=== PATIENT | female | born 1960 | race Caucasian/White ===

== ENCOUNTER 2025-01-30 16:38 | Emergency (ER) | payer MEDICARE, SELFPAY ==
[2025-01-30] VITALS (33 sets, daily range): BP systolic 95–131; BP diastolic 38–93; PULSE 68–82; RESP 13–29; TEMP 36.4; O2SAT 82–100
--- NOTE | ~2025-01-30 | CT_ITS ---
EXAMINATION: CTA chest PE protocol DATE: 01/30/2025 18:33 CDT INDICATION: Shortness of breath. Recent surgery. Elevated d-dimer. TECHNIQUE: Computed tomographic angiography (CTA) of the chest was performed with 100 mL Omnipaque-350 intravenous contrast. The dose-length product was 652.13 mGy-cm. Maximum intensity projection 3D-reconstructions of the aorta and other arteries were constructed by the technologist on a separate workstation. COMPARISON: Chest dated 01/30/2025. FINDINGS: Study is technically adequate without evidence for pulmonary embolism. No significant pleural or pericardial effusion. No thoracic lymphadenopathy. There is thickening of the esophagus, consistent with esophagitis. There is left lower lobe atelectasis. No focal pneumonia, edema or effusion. No pneumothorax. No endobronchial lesions. No acute osseous abnormality. Mild thoracic spondylosis. IMPRESSION: 1. Left lower lobe atelectasis. Reviewed, dictated and finalized at location O.
--- NOTE | ~2025-01-30 | XR_ITS ---
XR chest 2V 01/30/2025 17:12 Indication: Chest pain and shortness of breath Procedure: 2 view chest Comparison: No prior studies for comparison. Findings: There is subsegmental left lower lobe atelectasis. Heart size normal. No focal pneumonia, edema, significant effusion or pneumothorax. There are surgical changes at the cervicothoracic junction consistent with fusion. Impression: 1: Left lower lobe atelectasis. Reviewed, dictated and finalized at location O. Impression: 1: Left lower lobe atelectasis.
--- NOTE | 2025-01-30 16:44 | ECG_ITS ---
Test Date: 2025-01-30 16:43:41 Measurements Intervals [place] Rate: 76 P: 38 MS: 145 QRS: -3 QRSD: 84 T: 46 QT: 359 QTc: 405 Interpretive Statements SINUS RHYTHM LEFT AXIS DEVIATION No previous ECG available for comparison Electronically Signed On 01-31-2025 12:14:44 CDT by Negrito Pineda M.D.
[2025-01-30 17:03] LABS: Hematocrit 28.6 % (37.0-47.0); Hemoglobin 8.9 g/dL (12.0-15.0); Mean Corpuscular HGB Conc 31.1 g/dl (32-36); Mean Corpuscular Hemoglobin 28.9 pg (26-34); Mean Corpuscular Volume 92.9 fl (80-100); Platelet Count Result 388 k/mm3 (150-375); Red Blood Count 3.08 M/mm3 (4.2-5.4); White Blood Count 13.0 K/mm3 (4.5-10.0)
[2025-01-30 17:13] LABS: INR 1.0; Prothrombin Time 13.3 Seconds (11.1-14.7)
[2025-01-30 17:14] LABS: Partial Thromboplastin Time 34.7 Seconds (22.3-36.8)
[2025-01-30 17:17] LABS: Band Neutrophils Percent 2 % (0-6); Eosinophils Absolute Manual 0.39 K/mm3 (0.02-0.50); Eosinophils Percent Manual 3 % (0-4); Lymphocytes Absolute Manual 0.91 K/mm3 (1.1-4.5); Lymphocytes Percent Manual 7 % (18-44); Monocytes Absolute Manual 0.91 K/mm3 (0.1-0.90); Monocytes Percent Manual 7 % (3-9); Neutrophils Absolute Manual 10.27 K/mm3 (1.3-6.7); Neutrophils Percent Manual 77 % (46-73); Total Cells Counted 100
[2025-01-30 17:18] LABS: Metamyelocytes Percent 2 %; Myelocytes Percent 2 %; Schistocytes None Seen
[2025-01-30 17:19] LABS: Alanine Aminotransferase 18 U/L (6-35); Albumin Level 3.9 g/dL (3.5-5.1); Alkaline Phosphatase 111 U/L (38-126); Anion Gap 9 mmol/L (4-12); Aspartate Amino Transferase 24 U/L (14-36); Bilirubin,Total 0.2 mg/dL (0.2-1.3); Blood Urea Nitrogen 27 mg/dL (7-17); Calcium 9.2 mg/dL (8.4-10.2); Carbon Dioxide 27 mmol/L (22-30); Chloride 101 mmol/L (98-107); Estimated CRCL calculation 42 ml/min; Estimated Glomerular Filt Rate 49; Glucose 100 mg/dL (65-110); Lipase 38 U/L (23-300); Potassium 4.0 mmol/L (3.4-5.0); Sodium 137 mmol/L (137-145); Total Protein 7.1 g/dL (6.3-8.2)
--- OUTSIDE RECORDS SUMMARY | 2025-01-30 17:19 | XMS_ITS | Encounter Summary ---
Author Organization [facility] Address [address] [place] [address] Care Team Providers Care Cone Sewer Name Role Phone Minerva Trejo MD Primary Care Provider [phone] Encounter Details Date Type Department Care Team (Late st Contact Info) Description 01/22/[address] [place] [address] Sc[facility], [facility] Social History Tobacco Use Types Packs/Day Years Used Date Smoking Tobacco: Never Assessed Comments Unknown Sex and Gender Information Value Date Recorded Sex Assigned at Not on file Legal Sex Female 4:13 PM CDT Gender Identity Not on file Sexual Orientation Not on file documented as of this encounter Plan of Treatment Not on file documented as of this encounter Visit Diagnoses Not on filedocumented in this encounter Care Teams Cone Sewer Relationship Specialty Start Date End Date Minerva Trejo MD [address] [place] [address] PCP - General 11/15/14 documented as of this encounter
--- OUTSIDE RECORDS SUMMARY | 2025-01-30 17:19 | XMS_ITS | Encounter Summary ---
Author Organization [facility] Health Address [address] [place] [address] Care Team Providers Care Set Illustrator Name Role Phone Renay Trejo MD Primary Care Provider [phone] Cecilia Hall RN Unavailable Encounter Details Date Type Department Care Team (Late st Contact Info) Description 01/29/2025 Orders Only [facility] - [facility] [address] [facility] [place] [address] Nish Palmer MD [address] [place] [address] Cervical spondylosis with myelopathy Social History Tobacco Use Types Packs/Day Years Used Date Smoking Tobacco: Former Cigarettes Q uit: 11/18/2024 Smokeless Tobacco: Never Alcohol Use Standard Drinks/Week Comments No 0 (1 standard drink = 0.6 oz pur e alcohol) AUDIT-C Answer Date Recorded Q1: How often do you have a drink containing alcohol? Never 01/20/2025 Q2: How many drinks containi ng alcohol do you have on a typical day when you are drinking? Patient does not drink Q3: How often do you have si x or more drinks on one occasion? Never 01/20/2025 Overall Financial Resource Strain (CARDIA) Answe r Date Recorded How hard is it for you to pa y for the very basics like food, housing, medical care, and heating? Not hard at all 01/20/2025 PHQ-2 Answer Date Recorded Patient Health Questionnaire-2 Score 2 12/26/2024 [facility] - Occupational Stress Questionnaire Answer Date Recorded Do you feel stress - tense, restless, nervous, or anxious, or unable to sleep at night because your mind is troubled all the time - these days? Not at all 01/20/2025 Hunger Vital Sign Answer Date Recorded Within the past 12 months, y ou worried that your food would run out before you got the money to buy more. Never true 01/21/20 Within the past 12 months, t he food you bought just didn't last and you didn't have money to get more. Never true 01/20/2025 PRAPARE - Transportation Answer Date Re corded In the past 12 months, has l ack of transportation kept you from medical appointments or from getting medications? No 12/28 In the past 12 months, has l ack of transportation kept you from meetings, work, or from getting things needed for daily living? No 01/20/2025 Housing Stability Vital Sign Answer Rodney e Recorded In the last 12 months, was t here a time when you were not able to pay the mortgage or rent on time? No 01/20/2025 In the past 12 months, how m any times have you moved where you were living? 0 01/20/2025 At any time in the past 12 m onths, were you homeless or living in a prison (including now)? No 01/20/2025 Comments No Sex and Gender Information Value Date Recorded Sex Assigned at Not on file Legal Sex Female 6:29 AM RELIGIOUS EDUCATOR Gender Identity Not on file Sexual Orientation Not on file documented as of this encounter Functional Status * Is person deaf or have serious hearing difficulty? Answer Date of Assessment Author No 01/20/2025 6:40 PM Neelima Levine yes, RN * Is person blind or have serious difficulty seeing? Answer Date of Assessment Author No 01/20/2025 6:40 PM Neelima Levine yes, RN * Does person have serious difficulty walking/climbing stairs? Answer Date of Assessment Author No 01/20/2025 6:40 PM Neelima Levine yes, RN * Does person have difficulty dressing/bathing? Answer Date of Assessment Author No 01/20/2025 6:40 PM CDT Neelima Greene yes, RN * Does person have difficulty doing errands alone? Answer Date of Assessment Author No 01/20/2025 6:40 PM ALTAGRACIAT Neelima Greene yes, RN documented as of this encounter Mental Status * Does person have difficulty concentrating/remembering/making decisions? Answer Entry Date Author No 01/20/2025 6:40 PM ALTAGRACIAT Neelima Greene yes, RN documented in this encounter Plan of Treatment Upcoming Encounters Date Type Department Care Team (Late st Contact Info) Description 02/07/2025 11:00 AM CDT Office Visit [facility] [address] [place] [address] Minerva Krishnamurthy, [facility] [address] [place] [address].[place] [address] 02/20/2025 9:45 AM CDT Office Visit [facility] - Orthopedic Surgery [address] [place] [address] Nish Palmer MD [address] [place] [address] documented as of this encounter Visit Diagnoses Diagnosis Cervical spondylosis with myelopathy documented in this encounter Care Teams Set Illustrator Relationship Specialty Start Date End Date Renay Trejo MD [address] [place] [address] PCP - General Internal Medicine 10/03/14 Cecilia Hall, RADHA Mold Tooler 09/03/15 documented as of this encounter
--- OUTSIDE RECORDS SUMMARY | 2025-01-30 17:19 | XMS_ITS | Encounter Summary ---
Author Organization [facility] Health Address [address] [place] [address] Care Team Providers Care Neon Glass Blower Name Role Phone Renay Trejo MD Primary Care Provider [phone] Cecilia Hall RN Unavailable Encounter Details Date Type Department Care Team (Late st Contact Info) Description 01/14/2019 Telephone [facility] Orthopedic Surgery [address] [place] [address] Omid Amin MD [id number] [place] [address] Social History Tobacco Use Types Packs/Day Years Used Date Smoking Tobacco: Former Cigarettes Q uit: 11/10/2018 Smokeless Tobacco: Never Comments:3-5 cig/day Alcohol Use Standard Drinks/Week Comments No 0 (1 standard drink = 0.6 oz pur e alcohol) Comments No Sex and Gender Information Value Date Recorded Sex Assigned at Not on file Legal Sex Female 6:29 AM BOBBIN COLLECTOR Gender Identity Not on file Sexual Orientation Not on file documented as of this encounter Functional Status * Is person deaf or have serious hearing difficulty? Answer Date of Assessment Author No 09/02/2015 8:31 AM Alfredo Contreras RN * Is person blind or have serious difficulty seeing? Answer Date of Assessment Author No 09/02/2015 8:31 AM Alfredo Contreras RN * Does person have serious difficulty walking/climbing stairs? Answer Date of Assessment Author No 09/02/2015 8:31 AM Alfredo Contreras RN * Does person have difficulty dressing/bathing? Answer Date of Assessment Author No 09/02/2015 8:31 AM Alfredo Contreras RN * Does person have difficulty doing errands alone? Answer Date of Assessment Author No 09/02/2015 8:31 AM Alfredo Contreras RN documented as of this encounter Mental Status * Does person have difficulty concentrating/remembering/making decisions? Answer Entry Date Author No 09/02/2015 8:31 AM Alfredo Contreras RN documented in this encounter Plan of Treatment Upcoming Encounters Date Type Department Care Team (Late st Contact Info) Description 02/07/2025 11:00 AM CDT Office Visit [facility] [address] [place] [address] Minerva Krishnamurthy, GRINDING AND POLISHING LABORER-BI APPLICATION DEVELOPER [address] [place] [address] 02/20/2025 9:45 AM CDT Office Visit [facility] - Orthopedic Surgery [address] [place] [address] Nish Palmer MD [address] [place] [address] documented as of this encounter Visit Diagnoses Not on filedocumented in this encounter Care Teams Neon Glass Blower Relationship Specialty Start Date End Date Renay Trejo MD [address] [place] [address] PCP - General Internal Medicine 10/03/14 Cecilia Hall, RADHA Sql Server Bi Developer 09/03/15 documented as of this encounter
--- OUTSIDE RECORDS SUMMARY | 2025-01-30 17:19 | XMS_ITS | Encounter Summary ---
Author Organization [facility] Healthcare Address [address] [place] [address] Care Team Providers Care Clerk Rating Name Role Phone Minerva Trejo MD Primary Care Provider + [phone] Robby Borges DO Unavailable Heriberto Carreon DO Unavailable [phone] Yesenia Duncan DO Unavailable [phone] Omid Amin MD Unavailable John Escoto DO Unavailable + Nish Palmer MD Unavailable Jose Harding MD Unavailable Encounter Details Date Type Department Care Team (Late st Contact Info) Description 01/30/2025 Telephone [facility] Medical Group [facility] [address] [place] [address] Minerva Trejo MD [address] [place] [address] Social History Tobacco Use Types Packs/Day Years Used Date Smoking Tobacco: Some Days Cigarettes 0.5 40 Smokeless Tobacco: Never Alcohol Use Standard Drinks/Week Comments No 0 (1 standard drink = 0.6 oz pur e alcohol) PHQ-2 Answer Date Recorded PHQ-2 Total Score (If total score is 3 or more points, staff should administer the PHQ-9) 0 05/01/2024 Comments No Sex and Gender Information Value Date Recorded Sex Assigned at Not on file Legal Sex Female 6:03 PM LIFE SKILLS TRAINER Gender Identity Not on file Sexual Orientation Not on file Occupation Industry Job Start Date Job End Date disabled Not on file Not on file Not on file documented as of this encounter Miscellaneous Notes * Telephone Encounter - Levon Johnson RN - 01/30/2025 1:52 PM CDT Spoke to pt re: below Pt post op spinal fusion surgery on 01-20-25 @ [facility] Pt c/o new onset of SOB worsens w/exertion, anselmo low leg, ankle et feet et anselmo hand swelling-states my calves are very tight et it is a little red on my left leg down by my feet, my legs et feet are so swollen I can't hardly walk et I am having a hard time w/my breathing like I need some oxygen et I have a loose cough Instructed pt to go to nearest ER for eval of above Pt states she has no transport-offered to call for ambulance transfer Pt declines ambulance transfer et states she plans to call the surgeons office for his recommend prior to going to ER Instructed pt to call for Ambulance transfer [facility] if c/o worsen prior to recommend from surgeon's office Pt voices understand et states she will call back if needs assist to call for ambulance transfer ifdoes not get response from surgeon's office Pt has no further questions @ this time [id number] above * Telephone Encounter - Scarlett Willingham - 01/30/2025 1:21 PM CDT Pt just had a cervical spine fusion done on Monday01/27/25 at [facility] . Today pt has symptoms of Legs are swollen Hands are swollen Congestion in chest Cough Productive cough No fever Headache Neck pain near incision Please advise [phone] patient documented in this encounter Plan of Treatment Not on file documented as of this encounter Visit Diagnoses Not on filedocumented in this encounter Care Teams Clerk Rating Relationship Specialty Start Date End Date Minerva Trejo MD PCP - General 08/26/16 Robby Borges, DO [address] [place] [address] Orthopedic Surgery 02/14/17 Heriberto Carreon DO [address] [place] [address] Psychiatry 02/14/17 Yesenia Duncan DO [address] [place] [address] Referring Physician Ophthalmology 08/21/18 Omid Amin MD [address] [place] [address] Referring Physician Orthopedic Surgery 08/11/20 John Escoto DO [address] [facility] [address] [place] [address] Orthopedic Surgery 07/26/24 Nish Palmer MD [address] [place] [address] Orthopedic Surgery 11/04/24 Jose Harding MD [address] [place] [id number] Anesthesiology 11/04/24 documented as of this encounter
--- OUTSIDE RECORDS SUMMARY | 2025-01-30 17:19 | XMS_ITS | Encounter Summary ---
Author Organization [facility] Address [address] [place] [address] Care Team Providers Care Nuclear Equipment Sales Engineer Name Role Phone Minerva Trejo MD Primary Care Provider [phone] Encounter Details Date Type Department Care Team (Late st Contact Info) Description 04/01/2017 [place] [address] , Generic Conversion, Social History Tobacco Use Types Packs/Day Years [...] on filedocumented in this encounter Care Teams Nuclear Equipment Sales Engineer Relationship Specialty Start Date End Date Minerva Trejo MD [address] [place] [address] PCP - General 11/15/14 documented as of this encounter
--- OUTSIDE RECORDS SUMMARY | 2025-01-30 17:19 | XMS_ITS | Clinical Summary ---
Author Organization [facility] Address [address] [place] [address] Care Team Providers Care Tin Stacker Name Role Phone Renay Trejo MD Primary Care Provider [phone] Cecilia Hall RN Unavailable Source Comments [facility],non-owned Affiliates and Associated Physician Practices is amultiple site organization consisting of ambulatory clinics and hospital sitesin [place], [place], [place] and [place]. This disclosure is being madepursuant to the Care Everywhere program and may not contain all information available regarding this patient. Last updated 18.[facility] Allergies Active Allergy Reactions Criticality Noted Date Comments Aspirin GI Discomfort Low Buprenorphine Rash Medium 09/02/2015 Reaction: Rash, Egg Phospholipids Anaphylaxis High 10/03/2014 Measles, pneumonia, flu shot Albumin Unknown Low 09/01/2015 Poultry Meal 09/01/2015 Propofol Anaphylaxis High 10/03/2014 Propoxyphene GI Discomfort Low Medications * This document contains information received from the source organization and may not represent a complete record from that organization. * Be aware that medications may not be up to date on this document. Alwaysverify current medications with the patient. lamoTRIgine (LAMICTAL) 150 MG tablet Take 1 (one) tablet by mouth 2 times daily Active albuterol HFA (PROVENTIL;VENT BLAYNE;PROAIR) 108 (90 BASE) MCG/ACT inhaler Inhale 2 (two) puffs by mouth every 6 hours as needed Active budesonide-form oterol (SYMBICORT) 80-4.5 MCG/ACT inhaler Inhale 2 (two) puffs by mouth 2 times daily Active pravastatin (PRAVACHOL) 40 MG tablet Take 1 (one) tablet by mouth at bedtime Active ALPRAZolam (XANAX) 1 MG tablet Take 1 Tab by mouth 3 times daily as needed for Anxiety 5 Tab 0 09/07/19 16 Active latanoprost (Xalatan) 0.005 % ophthalmic solution Instill 1 (one) drop into both eyes at bedtime 03/25/20 24 Active Cholecalciferol 1.25 MG (93210 UT) Take 50,000 Units by mouth every 14 days 04/30/20 24 Active clobetasol (Temovate) 0.05 % solution APPLY TOPICALLY TO THE AFFECTED AREAS OF THE SCALP UNTIL CLEAR 02/13/20 24 Active gabapentin (Neurontin) 300 MG capsule Take 1 (one) capsule by mouth 05/01/20 24 Active hydrOXYzine HCl (Atarax) 25 MG tablet 08/18/19 25 Active KETOCONAZOLE, TOPICAL, 1 % Apply topically 02/29/20 23 Active valsartan-hydro CHLOROthiazide (Diovan HCT) 160-12.5 MG tablet Take 1 (one) tablet by mouth once daily Active tiZANidine (Zanaflex) 2 MG capsule Active multivitamin daily tablet Take 1 (one) tablet by mouth daily with food Active acetaminophen (Tylenol) 500 MG tablet Take 2 (two) tablets by mouth every 6 hours Maximum allowable Acetaminophen amount = 4 Grams (4000 mg) / 24 hours. 01/22/20 25 Active polyethylene glycol 3350 (Miralax) 17 g packet Take 17 (seventeen) g by mouth once daily 01/23/20 25 Active senna (Senokot Extra Strength) 17.2 MG Take 17.2 mg by mouth once daily 01/24/20 25 Active oxyCODONE, immediate release, (Roxicodone) 5 MG tabletIndicatio ns:Cervical spondylosis with myelopathy Take 1 (one) tablet by mouth every 6 hours as needed 30 tablet 01/30/20 25 Active methocarbamol (Robaxin) 500 MG tabletIndicatio ns:Cervical spondylosis with myelopathy Take 1 (one) tablet by mouth every 6 hours 60 tablet 01/30/20 25 Active acetaminophen (Tylenol) 500 MG tablet Take 1 (one) tablet by mouth 3 times daily as needed 05/01/20 24 025 Discontin ued(List Clean-Up) albuterol HFA (Proventil; Ventolin; Proair) 108 (90 Base) MCG/ACT inhaler Inhale 2 (two) puffs by mouth every 4 hours as needed 05/01/20 24 025 Discontin ued(List Clean-Up) oxyCODONE, immediate release, (Roxicodone) 5 MG tabletIndicatio ns:Cervical spondylosis with myelopathy Take 1 (one) tablet by mouth every 4 hours as needed 30 tablet 5 4:35 PM CDT 01/24/20 25 025 Discontin ued(Reord er) methocarbamol (Robaxin) 500 MG tablet Take 2 (two) tablets by mouth every 6 hours 60 tablet 5 4:35 PM CDT 01/24/20 25 025 Discontin ued(Reord er) Active Problems Problem Noted Date Diagnosed Date Cervical spondylosis with myelopathy 01/20/2025 Bipolar 1 disorder with moderate amparo Overview (07/28/2024): Diagnosed 2004 Vitamin D deficiency 05/16/2024 Open-angle glaucoma 08/21/2018 Arthritis 08/15/2017 Chronic pain disorder 08/15/2017 Overview (10/19/2018): Overview: Ankle disability with previous repair, bilateral knee repair, severe arthritis in the neck. Prediabetes 08/13/2017 Overview (07/28/2024): Diet and exercise management of the problem Anxiety 09/02/2015 Ankle arthritis 09/02/2015 Arthralgia of ankle 03/05/2014 Benign hypertension 10/12/2013 Overview (10/19/2018): Overview: Benign essential HTN Chronic rhinitis 10/12/2013 Overview (10/19/2018): Overview: Chronic rhinitis Herpes simplex type 2 infection 10/12/2013 Overview (10/19/2018): Overview: HSV-2 (herpes simplex virus 2) infection Multiple-type hyperlipidemia 10/12/2013 Overview (10/19/2018): Overview: Hyperlipemia, mixed Tobacco dependence syndrome 10/12/2013 Overview (10/19/2018): Overview: Tobacco abuse HLA B27 (HLA B27 positive) 08/30/2013 Overview (10/19/2018): Overview: HLA B27 (HLA B27 positive) Bipolar I disorder, most recent episode depresse d 06/17/2013 Overview (10/19/2018): Overview: Bipolar depression COPD with asthma 06/17/2013 Overview (10/19/2018): Overview: COPD with emphysema Resolved Problems Problem Noted Date Diagnosed Date Resolved Date Primary osteoarthritis of left knee 07/23/2015 01/23/2019 Encounters Date Type Department Care Team Description 01/29/2025 Orders Only [facility] - Orthopedics [address] [place] [address] Nish Palmer MD Cervical spondylosis with myelopathy 01/24/2025 Telephone [facility] - Orthopedic Surgery [address] [place] [phone] Nish Palmer MD Home Health 01/20/2025 7:37 AM CDT Anesthesia Event [facility] [address] [place] [phone] Alfie Spain MD [place], Briar, 01/20/2025 7:15 AM CDT - 01/20/2025 1:45 PM CDT Surgery [facility] [address] [place] [phone] Nish Palmer MD C2-T2 Posterior Spinal Fusion; C3-C7 Decompression 01/20/2025 5:49 AM CDT - 01/23/2025 2:20 PM CDT Hospital Encounter [facility] 5N ACUTE [address] [place] [address] Nish Palmer MD Surgery General Discharge Disposition: Home or Self Care 01/20/2025 Travel 01/10/2025 Telephone [facility] - Orthopedic Surgery [address] [place] [phone] Nish Palmer MD Concerns 01/02/2025 11:05 AM CDT - 01/02/2025 11:59 PM CDT Hospital Encounter [facility] LAB OP DRAW STATION [address] [place] [address] Discharge Disposition: Home or Self Care 01/02/2025 10:00 AM CDT - 01/02/2025 11:04 AM CDT Hospital Encounter [facility] PAT [address] [place] [address] Jael Palmer MD Discharge Disposition: Home or Self Care 01/02/2025 Travel 11/27/2024 11:47 AM CDT - 11/27/2024 11:59 PM CDT Hospital Encounter [facility] Health Imaging Services - CT Scan [address] [place] [address], [address] [place] [address] Nish Palmer MD Discharge Disposition: Home or Self Care 11/21/2024 Orders Only [facility] - [facility] Surgery [address] [place] [phone] Valentina Rodriguez RN Cervicalgia ; Trochanteric bursitis, left hip; Smoking history; Pre-operative clearance 11/14/2024 1:00 PM CDT [facility] [address] [place] [phone] Nish Palmer MD Cervical spondylosis with myelopathy (Primary Dx); Sacroiliitis; Trochanteric bursitis of both hips; Status post lumbar spinal fusion 11/14/2024 Travel 11/07/2024 10:58 AM CDT - 11/07/2024 11:59 PM CDT Hospital Encounter [facility] [address] [place] [address] Minerva Krishnamurthy, TECHNOLOGY DEVELOPMENT INTERN-STRATEGY LEAD Discharge Disposition: Home or Self Care 11/07/2024 Travel from Last 3 Months Immunizations Immunization Administration Dates Next Due TDAP (7yrs+) 08/09/2016 Social History Tobacco Use Types Packs/Day Years [...] Recorded Patient Health Questionnaire-2 Score 2 12/26/2024 [facility] Honor of Occupat ional Health - Occupational Stress [...] money to buy more. Never true 01/21/20 25 Within the past 12 months, t he [...] any time in the past 12 m [facility], were you homeless or living in a intermediate (including now)? No 01/20/2025 Comments No Sex and Gender Information Value Date Recorded Sex Assigned at Not on file Legal Sex Female 6:29 AM CAP SEWER Gender Identity Not on file Sexual Orientation Not on file Last Filed Vital Signs Vital Sign Reading Time Taken Comments Blood Pressure 152/65 01/23/2025 12:31 PM CDT Pulse 103 01/23/2025 12:31 PM CDT Temperature 36.8 C (98.2 F) 01/23/2025 12:31 PM CDT Respiratory Rate 18 01/23/2025 12:31 PM CDT Oxygen Saturation 95% 01/23/2025 12:31 PM CDT Inhaled Oxygen Concentration - - Weight 77.3 kg (170 lb 6.4 oz) 01/20/2025 6:10 A M CDT Height 157.5 cm (5' 2) 01/20/2025 6:10 AM CDT Body Mass Index 31.17 01/20/2025 6:10 AM CDT Plan of Treatment Upcoming Encounters Date Type Department Care Team (Late st Contact Info) Description 02/07/2025 11:00 AM CDT Office Visit [facility] Health Pain Care [address] [place] [address] Minerva Krishnamurthy, TECHNOLOGY DEVELOPMENT INTERN-STRATEGY LEAD [address] [place] [phone] 02/20/2025 9:45 AM CDT Office Visit [facility] - Orthopedic Surgery [address] [place] [address] Nish Palmer MD [address] [place] [address] Health Maintenance Due Date Last Done Comments COLON MONITORING 1958 COLONOSCOPY - COLON CA SCREENING 1958 CT COLONOGRAPHY - COLON CA SCREENING 1958 FIT - COLON CA SCREENING 1958 FLEX SIG - COLON CA SCREENING 1958 PNEUMOCOCCAL VACCINE 50+ (1 of 2 - PCV) 1977 ZOSTER VACCINE (1 of 2) 01/22/2008 Respiratory Syncytial Virus (RSV) Vaccine Pt: or over 60 yrs (1 - Risk 60-74 years 1-dose series) 2018 MEDICARE AWV CALENDAR YEAR 2024 COVID-19 VACCINE (1 - season) 2025 INFLUENZA VACCINE (#1) 2025 DTAP/TDAP/TD VACCINES (2 - Td or Tdap) 08/09/2026 08/09/2016 MAMMOGRAM 11/04/2026 11/04/2024, 01/2025, 09/04/2023, Additional history exists COLOGUARD (AGES 45-75) - COLON CA SCREENING 11/12/2026 11/13/2023 Colorectal Cancer Screening 11/12/2026 SCREENING FOR DIABETES 01/24/2028 , 01/22/2025, 2025, Additional history exists BONE DENSITY TESTING Completed 03/21/2023 HEPATITIS C SCREENING Completed 05/01/2024, 024 HEPATITIS B VACCINE Aged Out No longe r eligible based on patient's age to complete this topic HIB VACCINE Aged Out No longer eligi ble based on patient's age to complete this topic HPV VACCINE Aged Out No longer eligi ble based on patient's age to complete this topic MENINGOCOCCAL (Group B) VACCINE SHARED DECISION-MAKING Aged Out No longer eligible based on patient's age to complete this topic MENINGOCOCCAL GROUPS A/C/Y/W VACCINE Aged Out No longer eligible based on patient's age to complete this topic Medical Devices Implanted Type Area Marshmallow Machine Operator Device Identifier Shelf Expiration Date Model / Serial / Lot Atec 3.5 X 12 Screws Implanted:Qty : 5 on 01/20/2025 by Nish Palmer MD at [facility] Screw N/A: Posterior Cervical Alphatec Spine 11233-18-23 / / 99 Atec 3.5 X 14mm Screws Implanted:Qty : 3 on 01/20/2025 by Nish Palmer MD at [facility] Screw N/A: Posterior Cervical Alphatec Spine [id number] Atec 3.5 X 16mm Screws Implanted:Qty : 2 on 01/20/2025 by Nish Palmer MD at [facility] Screw N/A: Posterior Cervical [id number] Atec 5.0 X 28mm Screws Implanted:Qty : 3 on 01/20/2025 by iNsh Palmer MD at [facility] Screw N/A: Posterior Cervical Alphatec Spine [id number] Katey Screw 32mm Thd 65mm Implanted:Qty : 1 on 09/02/2015 by Robby Borges DO at [facility] Right: Ankle Nat Inc [id number] / / Washer Implanted:Qty : 1 on 09/02/2015 by Robby Borges DO at [facility] Right: Ankle Nat Inc [id number] 0 / / Cannulated Screw Full Thread 50mm Implanted:Qty : 1 on 09/02/2015 by Robby Borges DO at [facility] Right: Ankle Nat Inc [id number] 7 / / 3.5mm Screw Implanted:Qty : 1 on 09/02/2015 by Robby Borges DO at [facility] Right: Ankle Nat Inc / / 3.5mm Screw Implanted:Qty : 1 on 09/02/2015 by Robby Borges DO at [facility] Right: Ankle Nat Inc / / 3.5mm Screw Implanted:Qty : 1 on 09/02/2015 by Robby Borges DO at [facility] Right: Ankle Nat Inc / / 1/3 Tubular 3 Hole Plate Implanted:Qty : 1 on 09/02/2015 by Robby Borges DO at [facility] Right: Ankle Nat Inc [id number] / / 4.0mm Partially Threaded Screw Implanted:Qty : 1 on 09/02/2015 by Robby Borges DO at [facility] Right: Ankle Nat Inc / / Nexgen Cr-Flex Porous Femoral Size E-Lt Implanted:Qty : 1 on 01/22/2019 by Omid Amin MD at [facility] Left: Knee Nat Biomet 07/26/2028 / / [id number] Description:NexGen complete knee solution cruciate retaining cr-flex femoral component porous size e left Deacon K2 Sys Kn Uncemented Implanted:Qty : 1 on 01/22/2019 by Omid Amin MD at [facility] Left: Knee Nat Biomet K2 UNCEMENT ED / / Nexgen Trab Metal Cr Monoblock Tib Sz 4 C/D 10mm Implanted:Qty : 1 on 01/22/2019 by Omid Amin MD at [facility] Left: Knee Nat Biomet 04/27/[id number] 0 [id number] / Description:JY Nexgen complete knee solution cruciate retaining trabecular metal monoblock tibial component tibaial size 4 femoral size c-h 10mm height tantalum/uhmwpe Graft Bone Magnifuse Dbm 10x1cm - [id number] Implanted:Qty : 1 on 01/20/2025 by Nish Palmer MD at [facility] N/A: Spine Cervical Osteotech Inc 08/05/2026 [id number] / [id number] / [id number] Implanted:Qty : 2 on 01/20/2025 by Nish Palmer MD at [facility] N/A: Spine Cervical Alphatec Spine [id number] / / 99 Set Screw Implanted:Qty : 14 on 01/20/2025 by Nish Palmer MD at [facility] N/A: Spine Cervical Alphatec Spine [id number] / / 99 Graft Bone Canc 4-9.5mm 30cc Algrf Frzdr - [id number] Implanted:Qty : 1 on 01/20/2025 by Nish Palmer MD at [facility] N/A: Spine Cervical Allosource 08/12/2029 [id number] / [id number] / Explanted Type Area Marshmallow Machine Operator Device Identifier Shelf Expiration Date Model / Serial / Lot Atec 5.0 X 30mm Screw Explanted:Qty: 1 on 01/20/2025 at [facility] Screw N/A: Posterior Cervical Alphatec Spine [id number] 30 / / Procedures Procedure Name Priority Date/Time Associated Diagnosis Comments CBC W AUTO DIFFERENTIAL Routine 01/23/2025 3:11 AM CDT BASIC METABOLIC PANEL (CALCIUM TOTAL) Routine 01/23/2025 3:11 AM CDT CBC W AUTO DIFFERENTIAL Routine 01/22/2025 5:24 AM CDT BASIC METABOLIC PANEL (CALCIUM TOTAL) Routine 01/22/2025 5:24 AM CDT XR CERVICAL SPINE 2 OR 3VW Routine 2025 3:58 PM CDT Cervical spondylosis with myelopathy CBC W AUTO DIFFERENTIAL Routine 2025 3:13 AM CDT BASIC METABOLIC PANEL (CALCIUM TOTAL) Routine 2025 3:13 AM CDT FL NAHOMY SURGERY Routine 01/20/2025 12:30 PM CDT Cervical spondylosis with myelopathy ENDOTRACHEAL TUBE NOTE Routine 01/20/2025 8:20 AM CDT ARTERIAL LINE NOTE Routine 01/20/2025 8: 19 AM CDT PA ARTHRD PST/PSTLAT TQ 1NTRSPC CRV BELW C2 SEGMENT 01/20/2025 7:23 AM CDT Cervical spondylosis with myelopathy Special Needs Prone--open makenzie C-Arm, Bivector GW tongs, Depuy Synthes Symphony, Magnifuse Monitoring: SSEP, EMG, MEP, OUSMANE VAZQUEZ [phone]--notified JENNIFER 01/17 TYPE + SCREEN PANEL STAT 01/20/2025 6 :34 AM CDT Chronic pain disorder TYPE + SCREEN PANEL Routine 01/02/2025 1 :31 PM CDT Cervical spondylosis with myelopathy LAB MISC TEST STAT 01/02/2025 1:31 PM CDT Smoking history C-REACTIVE PROTEIN Routine 01/02/2025 1: 31 PM CDT Cervical spondylosis with myelopathy ERYTHROCYTE SEDIMENTATION RATE Routine 01/02/2025 1:31 PM CDT Cervical spondylosis with myelopathy CBC W AUTO DIFFERENTIAL Routine 01/02/2025 1:31 PM CDT Cervical spondylosis with myelopathy COMPREHENSIVE METABOLIC PANEL Routine 01/02/2025 1:31 PM CDT Cervical spondylosis with myelopathy NICOTINE + METABOLITES URINE Routine 01/02/2025 12:29 PM CDT Smoking history Pre-operative clearance CT CERVICAL SPINE WO CONTRAST Routine 11/27/2024 12:01 PM CDT Cervical spondylosis with myelopathy PAIN MANAGEMENT PROCEDURE TIME Routine 11/07/2024 11:47 AM CDT Sacroiliitis, not elsewhere classified from Last 3 Months Results * (ABNORMAL) CBC W AUTO DIFFERENTIAL (01/23/2025 3:11 AM CDT) Only the most recent of4 resultswithin the time period is included. [facility] Signature WBC 11.5(H) 4.0 - 10.7 x10E9/L 01/23/2025 4:01 AM [facility] RBC Count 3.14(L) 3.90 - 5.20 x10E12/L 01/23/2025 4:01 AM [facility] Hemoglobin 9.2(L) 11.9 - 15.8 g/dL 01/23/2025 4:01 AM [facility] Hematocrit 28.6(L) 34.8 - 46.1 % 01/23/2025 4:01 AM [facility] MCV 91.1 80.0 - 98.0 fL 01/23/2025 4:01 AM [facility] MCH 29.3 26.7 - 33.6 pg 01/23/2025 4:01 AM [facility] MCHC 32.2 31.7 - 36.3 g/dL 01/23/2025 4:01 AM [facility] RDW-CV 14.1 11.3 - 14.8 % 01/23/2025 4:01 AM [facility] Platelet Count 224 150 - 420 x10E9/L 01/23/2025 4:01 AM [facility] MPV 9.7 7.8 - 11.4 fL 01/23/2025 4:01 AM [facility] Neutrophil % 76.0(H) 41.0 - 74.0 % 01/23/2025 4:01 AM [facility] Lymphocyte % 10.7(L) 17.0 - 47.0 % 01/23/2025 4:01 AM [facility] Monocyte % 8.6 3.0 - 11.0 % 01/23/2025 4:01 AM [facility] Eosinophil % 2.6 0.0 - 7.0 % 01/23/2025 4:01 AM [facility] Basophil % 0.4 0.0 - 1.6 % 01/23/2025 4:01 AM [facility] Immature Granulocytes % 1.7(H) 0.0 - 1.0 % 01/23/2025 4:01 AM [facility] Neutrophil Absolute 8.73(H) 1.60 - 7.50 x10E9/L 01/23/2025 4:01 AM [facility] Lymphocyte Absolute 1.23 1.00 - 4.40 x10E9/L 01/23/2025 4:01 AM [facility] Monocyte Absolute 0.99 0.15 - 1.00 x10E9/L 01/23/2025 4:01 AM [facility] Eosinophil Absolute 0.30 0.00 - 0.60 x10E9/L 01/23/2025 4:01 AM [facility] Basophil Absolute 0.05 0.00 - 0.13 x10E9/L 01/23/2025 4:01 AM [facility] Blood BLOOD SPECIMEN / Unknown Lab Venipuncture / Unknown 01/23/2025 3:11 AM CDT 01/23/2025 3:35 AM T us Nish Palmer MD LAB - HEMATOLOGY ORDER SHAQ Final Result [facility] [address] [place] [address], [facility] [phone] * (ABNORMAL) BASIC METABOLIC PANEL (CALCIUM TOTAL) (01/23/2025 3:11 AM T) Only the most recent of3 resultswithin the time period is included. BUN 23 7 - 26 mg/dL 01/23/2025 4:08 AM [facility] Creatinine 1.00(H) 0.56 - 0.96 mg/dL 01/23/2025 4:08 AM [facility] Sodium 137 136 - 145 mmol/L 01/23/2025 4:08 AM [facility] Potassium 4.4 3.5 - 4.5 mmol/L 01/23/2025 4:08 AM [facility] Chloride 106 98 - 107 mmol/L 01/23/2025 4:08 AM [facility] CO2 24 22 - 29 mmol/L 01/23/2025 4:08 AM [facility] Glucose 124(H) 70 - 99 mg/dL 01/23/2025 4:08 AM T [facility] Calcium 8.8 8.4 - 10.2 mg/dL 01/23/2025 4:08 AM [facility] Anion Gap 7 6 - 16 01/23/2025 4:08 AM [facility] BUN/Creatinine Ratio 23 7 - 23 01/23/2025 4:08 AM [facility] Osmolality Calculated 289 275 - 295 mOsm/kg 01/23/2025 4:08 AM [facility] eGFR by CKD-EPI 62(L) >=90 mL/min/1.7 3 m2 01/23/2025 4:08 AM [facility] Comment:Estimated Glomerular Filtration Rate (eGFR) calculated using the CKD-EPI Creatinine Equation (2020), per the National Kidney Foundation and [place] [employer] Neph[employer] recommendations. Blood BLOOD SPECIMEN / Unknown Lab Venipuncture / Unknown 01/23/2025 3:11 AM CDT 01/23/2025 3:36 AM CDT us Nish Palmer MD LAB - CHEMISTRY ORDERA BLES Final Result [facility] [address] [place] [address], [facility] [phone] * XR CERVICAL SPINE 2 OR 3 VW (2025 3:58 PM CDT) Anatomical Region Laterality Modality Spine Digital Radiogra phy 01/22/2025 2:15 PM CDT Impressions 01/22/2025 4:24 PM CDT IMPRESSION: Interval post surgical changes of posterior fusion of C2-C5 with associated laminectomy. Report dictated by Estela Cerrato MD (microarray operations vice president). > Dictated by Electric[employer] I, Willem De La Cruz MD have personally reviewed and interpreted this examination/study. > Interpreting Provider: Willem De La Cruz MD on 01/22/2025 4:24 PM Narrative 01/22/2025 4:24 PM CDT PROCEDURE: XR CERVICAL SPINE 2 OR 3VW, DATE/TIME OF EXAM: 2025 3:58 PM, LOCATION [facility] INDICATION: M47.12: Cervical spondylosis with myelopathy ADDITIONAL CLINICAL INFORMATION: Ordering Provider Reason For Exam: s/p fusion Technologist Note: Additional: COMPARISON: Cervical spine radiograph dated 08/22/2024 FINDINGS: Interval postsurgical changes of posterior fusion of C2-T2 with associated laminectomy and morselized bone grafts at multiple levels. Instrumentation appears intact. A drain is in place. No acute fracture or compression deformity is identified. Moderate disc space narrowing is present at multiple levels most notable at C5-C6. The dens is intact and the lateral masses are normally aligned. The predental interval and prevertebral soft tissues are normal. Mild postsurgical prevertebral soft tissue swelling. Procedure Note Willem De La Cruz MD - 01/22/2025 PROCEDURE: XR CERVICAL SPINE 2 OR 3VW, DATE/TIME OF EXAM: 53:58 PM, LOCATION [facility] INDICATION: M47.12: Cervical spondylosis with myelopathy ADDITIONAL CLINICAL INFORMATION: Ordering Provider Reason For Exam: s/p fusion Technologist Note: Additional: COMPARISON: Cervical spine radiograph dated 08/22/2024 FINDINGS: Interval postsurgical changes of posterior fusion of C2-T2 withassociated laminectomy and morselized bone grafts at multiple levels.Instrumentation appears intact. A drain is in place. No acute fracture or compression deformity is identified. Moderate disc space narrowing is present at multiple levels most notable at C5-C6. The dens is intact and the lateral masses are normally aligned. Thepredental interval and prevertebral soft tissues are normal. Mild postsurgical prevertebral soft tissue swelling. IMPRESSION: Interval post surgical changes of posterior fusion of C2-C5 withassociated laminectomy. Report dictated by Estela Cerrato MD (microarray operations vice president). > Dictated by Electrician Control Equipment I, Willem De La Cruz MD have personally reviewed and interpreted this examination/study. > Interpreting Provider: Willem De La Cruz MD on 01/22/2025 4:24 PM Nish Palmer MD DIAGNOSTIC IMAGING ORD ERABLES Final Result * [place] Nahomy Surgery (01/20/2025 12:30 PM CDT) Narrative [facility] - 01/20/2025 1:39 PM CDT Fluoroscopy was used for this exam in the OR. Please see the Operative report. Nish Palmer MD FLUOROSCOPY ORDERABLES Final Result [facility] * ETT LINE PERFORMABLE (01/20/2025 8:20 AM CDT) Narrative Meka Zimmerman CAA - 01/20/2025 8:20 AM CDT Meka Zimmerman CAA 01/20/2025 8:21 AM Endotracheal Tube Placement: Patient Location: OR. Intubation Event Date/Time: 01/20/2025 7:47 AM Procedure: intubation (69521) Procedure Section: Sedation: under general anesthesia. Indications for Airway Management: anesthesia Induction: standard IV Patient Position: supine Mask Ventilation: easy with oral airway. Blade Type: Susannah Blade Size: 3 Laryngoscopy View: grade 1 (full cords) Intubation Adjuncts: stylet Tube: endotracheal tube Placement: oral Tube type: cuff - inflated Tube Size (MM): 7.5 Depth of Insertion (CM): 22 Measured From: gums Cuff Inflated With: air Number of Attempts: 1. Placement Verified By: direct visualization, bilateral breath sounds, chest auscultation and CO2 monitor Tube secured with: adhesive tape. Dentition unchanged? Yes Difficult Airway? No. Procedure Start Time: 01/20/2025 7:47 AM. Staff Section Anesthesia Provider: Special Procedures Technologist, Student Anesthesiology Special Procedures Technologist Student Anesthesiology, Performed the procedure Provider #1: Meka Zimmerman CAA. Provider #2: Alfie Spain MD. Additional Comments: Atraumatic intubation by KAROLINA Godwin with lips, gums and tongue in pre-op condition. Eyes taped prior to intubation. Minimal neck movement throughout procedure. . Alfie Spain MD GENERAL ANESTHESIA ORDERABL ES Final Result * ARTERIAL LINE PERFORMABLE (01/20/2025 8:19 AM CDT) Narrative Meka Zimmerman CAA - 01/20/2025 8:19 AM CDT Meka Zimmerman CAA 01/20/2025 8:20 AM Arterial Line Placement Procedure Note Patient Location: OR. Insertion Time: 01/20/2025 8:07 AM Procedure: Arterial Line ([id number]) Procedure Section Indications: continuous blood pressure monitoring and blood sampling needed. Consent: informed consent was obtained for the procedure. Skin Prep: Chloraprep. Orientation: Right. Site: radial. Site Identification: palpation. Sterile Technique: cap and mask. Gauge: 20. Seldinger Technique Used? Yes Number of Attempts: 1. Line Secured with: tape and Tegaderm. Procedure Tolerance: performed while patient under general anesthesia and no immediate complications. Events: none. Patient Sedated? Yes Local Anesthetic Used? No Sedation Types: general anesthesia Staff Section Anesthesia Provider: Alfie Spain MD, Performed the procedure Alfie Spain MD GENERAL ANESTHESIA ORDERABL ES Final Result * TYPE + SCREEN PANEL (01/20/2025 6:34 AM CDT) Only the most recent of2 resultswithin the time period is included. Antibody Screen NEG 7:43 AM CDT [facility] ABO Rh O POS 01/20/2025 7:43 AM CDT [facility] Blood Bank BLOOD SPECIMEN / Unknown Venipuncture / Unknown 01/20/2025 6:34 AM CDT 01/20/2025 6:42 AM CDT Nish Palmer MD LAB - BLOOD BANK ORDER SHAQ Final Result Performing Organization Address [facility]/State/ZIP Co de Phone Number [facility] [address] [place] [address], [facility] [phone] * LAB MISC TEST (01/02/2025 1:31 PM CDT) Test Name CARBON MONOXIDE 01/07/2025 4:47 PM CDT [facility] Test Result See Scanned Report 01/07/2025 4:47 PM CDT [facility] Comment Ref Lab Fishman 01/07/2025 4:47 PM CDT [facility] Blood BLOOD SPECIMEN / Unknown Lab Venipuncture / Unknown 01/02/2025 1:31 PM CDT 01/02/2025 1:36 PM CDT Nish Palmer MD LAB SEND OUT Final Result [facility] [address] [place] [address] * C-REACTIVE PROTEIN (01/02/2025 1:31 PM CDT) Pathologist [facility] C-Reactive Protein <0.5 <=0.5 mg/dL 01/02/2025 2:48 PM CDT [facility] Blood BLOOD SPECIMEN / Unknown Lab Venipuncture / Unknown 01/02/2025 1:31 PM CDT 01/02/2025 2:03 PM CDT Nish Palmer MD LAB - CHEMISTRY ORDERA BLES Final Result Performing Organization Address [facility] Co de Phone Number [address] [address], [place] [phone] * ERYTHROCYTE SEDIMENTATION RATE (01/02/2025 1:31 PM CDT) [facility] Erythrocyte Sedimentation Rate Westergren 18 0 - 30 MM/HR 01/02/2025 2:36 PM CDT [facility] Blood BLOOD SPECIMEN / Unknown Lab Venipuncture / Unknown 01/02/2025 1:31 PM CDT 01/02/2025 1:58 PM CDT Nish Palmer MD LAB - HEMATOLOGY ORDER SHAQ Final Result Performing Organization Address [facility]/ZIP Co de Phone Number [address] [address], [place] [phone] * (ABNORMAL) COMPREHENSIVE METABOLIC PANEL (01/02/2025 1:31 PM CDT) [facility] BUN 17 7 - 26 mg/dL 01/02/2025 2:47 PM CDT [facility] Creatinine 1.15(H) 0.56 - 0.96 mg/dL 01/02/2025 2:47 PM CDT [facility] Sodium 141 136 - 145 mmol/L 01/02/2025 2:47 PM [facility] Potassium 4.2 3.5 - 4.5 mmol/L 01/02/2025 2:47 PM [facility] Chloride 105 98 - 107 mmol/L 01/02/2025 2:47 PM [facility] CO2 24 22 - 29 mmol/L 01/02/2025 2:47 PM [facility] Glucose 93 70 - 99 mg/dL 01/02/2025 2:47 PM [facility] Calcium 10.2 8.4 - 10.2 mg/dL 01/02/2025 2:47 PM [facility] Protein Total 7.9 6.0 - 8.3 g/dL 01/02/2025 2:47 PM [facility] Albumin 5.0 3.4 - 5.0 g/dL 01/02/2025 2:47 PM [facility] Bilirubin Total 0.4 0.2 - 1.2 mg/dL 01/02/2025 2:47 PM [facility] Alkaline Phosphatase 88 40 - 150 U/L 01/02/2025 2:47 PM [facility] ALT 20 5 - 55 U/L 01/02/2025 2:47 PM [facility] AST 19 5 - 34 U/L 01/02/2025 2:47 PM [facility] Anion Gap 12 6 - 16 01/02/2025 2:47 PM [facility] BUN/Creatinine Ratio 15 7 - 23 01/02/2025 2:47 PM [facility] Osmolality Calculated 293 275 - 295 mOsm/kg 01/02/2025 2:47 PM [facility] Albumin/Globulin Ratio 1.7 1.1 - 2.3 01/02/2025 2:47 PM [facility] eGFR by CKD-EPI 53(L) >=90 mL/min/1.7 3 m2 01/02/2025 2:47 PM [facility] Comment:Estimated Glomerular Filtration Rate (eGFR) calculated using the CKD-EPI Creatinine Equation (2020), per the National Kidney Foundation and [place] [employer] Nephrology recommendations. Blood BLOOD SPECIMEN / Unknown Lab Venipuncture / Unknown 01/02/2025 1:31 PM CDT 01/02/2025 2:03 PM CDT us Nish Palmer MD LAB - CHEMISTRY ORDERA BLES Final Result [facility] [address] [place] [address], [facility] [phone] * NICOTINE + METABOLITES URINE (01/02/2025 12:29 PM CDT) Nicotine Urine <15 ng/mL 01/06/2025 1:43 PM CDT [facility] ([facility]) Comment: INTERPRETIVE INFORMATION: Nicotine and Metabolites, Urine, Quantitative Methodology: Quantitative Liquid Chromatography-Tandem Mass Spectrometry Positive cutoff: Nicotine 15 ng/mL Cotinine 15 ng/mL 7-FG-Aprkdhml 50 ng/mL Anabasine 5 ng/mL For medical purposes only; not valid for forensic use. This test is designed to evaluate recent use of nicotine-containing products. Passive and active exposure cannot be discriminated definitively, although a cutoff of 100 ng/mL cotinine is frequently used for surgery qualification purposes. For smoking cessation programs or compliance testing, the absence of expected drug(s) and/or drug metabolite(s) may indicate non-compliance, inappropriate timing of specimen collection relative to drug administration, poor drug absorption, diluted/adulterated urine, or limitations of testing. The concentration value must be greater than or equal to the cutoff to be reported as positive. Anabasine is included as a biomarker of tobacco use, versus nicotine replacement. Interpretive questions should be directed to the laboratory. This test was developed and its performance characteristics determined by [facility]. It has not been cleared or approved by the [place] Food and Drug Administration. This test was performed in a CLIA certified laboratory and is intended for clinical purposes. Performed By: [facility] [address] [place] [address] Lead Cargoman: Delfino Neves MD, PhD CLIA Number: [id number] 3-Hydroxy Cotinine Urine <50 ng/mL 01/06/2025 1:43 PM CDT [facility] ([facility]) Cotinine Urine <15 ng/mL 01/06/2025 1:43 PM CDT [facility] ([facility]) Anabasine Urine <5 ng/mL 1:43 PM CDT [facility] ([facility]) Urine URINE / Unknown Collection / Unknown 01/02/2025 12:29 PM CDT 01/02/2025 12:41 PM CDT Nish Palmer MD LAB - URINE CHEMISTRY ORDERABLES Final Result [facility]) [address] [place], [place] [id number] [place] [address] * CT Cervical Spine Wo Contrast (11/27/2024 12:01 PM CDT) Anatomical Region Laterality Modality Spine Computed Tomogra phy 11/27/2024 3:57 PM CDT Impressions 11/27/2024 4:00 PM CDT IMPRESSION: Cervical degenerative change, similar to prior study. > Interpreting Provider: Candy Palacios MD on 11/27/2024 4:00 PM Narrative 11/27/2024 4:00 PM CDT PROCEDURE: CT CERVICAL SPINE WO CONTRAST DATE/TIME OF EXAM: 11/27/2024 12:01 PM CLINICAL INFORMATION: None relevant/not provided if blank. Indication: M47.12: Cervical spondylosis with myelopathy Additional History: COMPARISON: MRI from 09/24/2024 TECHNIQUE: CT of the cervical spine was performed utilizing standard protocol. Sagittal and coronal reformatted images were rendered. CT dose reduction technique was used, including Automated Exposure Control. FINDINGS: 3.5 mm anterolisthesis of C2 on C3. 2 mm anterolisthesis of C3 on C4. Vertebral body heights are normal. There is severe disc space narrowing from C4-C5 through 6 and C6-C7. There is facet arthritis in the upper cervical spine. There is kyphosis of the cervical spine. Central canal stenosis is not appreciably changed. There is multilevel left neural foraminal stenosis, unchanged. The visualized portions of the lung apices are clear. Procedure Note Candy Palacios MD - 11/27/2024 PROCEDURE: CT CERVICAL SPINE WO CONTRAST DATE/TIME OF EXAM: 11/27/2024 12:01 PM CLINICAL INFORMATION: None relevant/not provided if blank. Indication: M47.12: Cervical spondylosis with myelopathy Additional History: COMPARISON: MRI from 09/24/2024 TECHNIQUE: CT of the cervical spine was performed utilizing standard protocol. Sagittal and coronal reformatted images were rendered. CT dose reduction technique was used, including Automated ExposureControl. FINDINGS: 3.5 mm anterolisthesis of C2 on C3. 2 mm anterolisthesis of C3 on C4. Vertebral body heights are normal. There is severe disc space narrowing from C4-C5 through 6 and C6-C7. There is facet arthritis in the upper cervical spine. There is kyphosis of the cervical spine. Central canal stenosis is not appreciably changed. There is multilevel left neural foraminal stenosis, unchanged. The visualized portions of the lungapices are clear. IMPRESSION: Cervical degenerative change, similar to prior study. > Interpreting Provider: Candy Palacios MD on 11/27/2024 4:00 PM [address] MD CT ORDERABLES Final Result * Pain Management Procedure Time (11/07/2024 11:47 AM CDT) Anatomical Region Laterality Modality Radio Fluoroscop y Narrative 11/07/2024 5:58 PM CDT Jose Bahena MD 11/07/2024 5:59 PM PROCEDURE NOTE: left Sacroiliac joint steroid injection DOS: 11/07/2024 Primary pain complaint: Sacroiliitis Pre-procedure diagnosis: Sacroiliac Arthropathy Post-procedure diagnosis: Same Attending: Dr. Jose Avila MD., Ph.D. After fully informed written consent was obtained, the patient was placed in the prone position. Monitoring of pulse oximetry, heart rate, and blood pressure was done pre-procedure, during the procedure, and post-procedure. The skin in the lower back was prepped with chlorhexidine and draped in a sterile fashion. With a 25 gauge, 1-inch needle, 1% lidocaine was injected subcutaneously over the entry site. A 22-gauge 3.5 inch spinal needle was advanced into the posteroinferior aspect of the SI joint under direct fluoroscopic visualization. There was no evidence of paresthesias throughout needle placement. After negative aspiration for blood and cerebrospinal fluid, 0.5 ccs of fluoroscopic contrast was injected to confirm needle placement inside the joint. Then, a mixture of 1 ml of 40 mg/ml triamcinolone and 1 ml of lidocaine 2% was injected (2mls total volume). The stylet was replaced and the needle was withdrawn. The patient tolerated the procedure well and there was no evidence of procedural complications. The patient denied any lower extremity weakness or numbness. The patient was brought to the recovery room for observation in stable condition, and was discharged with written discharge instructions with an escort. Anesthesia: local anesthesia Complications: none Pre-op VAS: 8/10 Post-op VAS: 06/07 Plan of care: Patient advised to contact the Pain Center for any of the followin. Fever, chills or night sweats 2. New onset of severe sharp pain 3. Any new upper/lower extremity weakness or numbness 4. Any questions regarding the procedure If unable to contact the Pain Center, patient instructed to go to local Emergency Room. Procedural Imaging Documentation: Mendez images from this procedure were requested to be saved in the PACS system. At the time of this dictation, I have confirmed that the images are present in the PACS system as part of the patient's medical record. I, Jose Avila, performed the whole procedure. Jose Avila MD DIAGNOSTIC IMAGING ORDERA BLES Final Result from Last 3 Months Insurance COVENTRY MEDICARE [facility] AETNA MEDICARE [facility] Advance Directives Documents on File Type Date Recorded Patient Trailers And [employer] Salesperson Expl anation Adv Directive/Living Will/POA 09/09/2015 10:57 PM Akilah Nielsen * Full Code (Latest Code Status on File) Date Activated Date Inactivated Comments 01/20/2025 1:36 PM 01/23/2025 3:20 PM * Full Code Date Activated Date Inactivated Comments 01/20/2025 1:36 PM 01/20/2025 1:36 PM * Full Code Date Activated Date Inactivated Comments 01/22/2019 3:19 PM 01/23/2019 8:01 PM * Full Code Date Activated Date Inactivated Comments 09/02/2015 4:12 PM 09/08/2015 5:59 PM Care Teams Tin Stacker Relationship Specialty Start Date End Date Renay Trejo MD [address] [place] [address] PCP - General Internal Medicine 10/03/14 Cecilia Hall, RN Casting Assistant 09/03/15
--- OUTSIDE RECORDS SUMMARY | 2025-01-30 17:19 | XMS_ITS | Encounter Summary ---
Author Organization [facility] Address [address] [place] [address] Phone Care Team Providers Care Ticket Manager Name Role Phone Minerva Trejo MD Primary Care Provider + [phone] Robby Borges DO Unavailable Heriberto Carreon DO Unavailable [phone] Yesenia Duncan DO Unavailable [phone] Omid Amin MD Unavailable John Escoto DO Unavailable + Nish Palmer MD Unavailable Jose Harding MD Unavailable Encounter Details Date Type Department Care Team (Late st Contact Info) Description 03/12/2021 Orders Only [facility] [address] [place] [address] Kiran Trejo MD [address] [place] [address] Social History Tobacco Use Types Packs/Day Years Used Date Smoking Tobacco: Some Days Cigarettes Smokeless Tobacco: Never Alcohol Use Standard Drinks/Week Comments No 0 (1 standard drink = 0.6 oz pur e alcohol) PHQ-2 Answer Date Recorded PHQ-2 Total Score (If total score is 3 or more points, staff should administer the PHQ-9) 0 02/12/2021 Comments No Sex and Gender Information Value Date Recorded Sex Assigned at Not on file 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 Gender Identity Not on file Sexual Orientation Not on file Occupation Industry Job Start Date Job End Date disabled Not on file Not on file Not on file documented as of this encounter Plan of Treatment Not on file documented as of this encounter Procedures Procedure Name Priority Date/Time Associated Diagnosis Comments SCAN - LABS 03/12/2021 documented in this encounter Results * SCAN - LABS (03/12/2021) Kiran Trejo MD Final Result documented in this encounter Visit Diagnoses Not on filedocumented in this encounter Care Teams Ticket Manager Relationship Specialty Start Date End Date Minerva Trejo MD PCP - General 08/26/16 Robby Borges DO [address] [place] [address] Orthopedic Surgery 02/14/17 Heriberto Carreon DO [address] [place] [address] Psychiatry 02/14/17 Yesenia Duncan DO [address] [place] [address] Referring Physician Ophthalmology 08/21/18 Omid Amin MD [address] [place] [address] Referring Physician Orthopedic Surgery 08/11/20 John Escoto DO [address] [facility] [address] [place] [address] Orthopedic Surgery 07/26/24 Nish Palmer MD [address] [place] [address] Orthopedic Surgery 11/04/24 Jose Harding MD [address] [place] [address] Anesthesiology 11/04/24 documented as of this encounter
--- OUTSIDE RECORDS SUMMARY | 2025-01-30 17:19 | XMS_ITS | Encounter Summary ---
Author Organization [facility] Address [address] [place] [address] Phone Care Team Providers Care Collection Coordinator Name Role Phone Minerva Trejo MD Primary Care Provider + [phone] Robby Borges DO Unavailable Heriberto Carreon DO Unavailable [phone] Zayda Fields MD Unavailable [phone] Robby Mays MD Unavailable [phone] Yesenia Duncan DO Unavailable Omid Amin MD Unavailable John Escoto DO Unavailable + Nish Palmer MD Unavailable Jose Harding MD Unavailable Encounter Details Date Type Department Care Team (Late st Contact Info) Description 01/11/2017 Orders Only [facility] [address] [place] [address] Minerva Trejo MD [address] [place] [address] Mixed hyperlipidemia (Primary Dx) Social History Tobacco Use Types Packs/Day Years Used Date Smoking Tobacco: Some Days Alcohol Use Standard Drinks/Week Comments No 0 (1 standard drink = 0.6 oz pur e alcohol) Comments Unknown Sex and Gender Information Value Date Recorded Sex Assigned at Not on file 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 Gender Identity Not on file Sexual Orientation Not on file documented as of this encounter Plan of Treatment Not on file documented as of this encounter Procedures Procedure Name Priority Date/Time Associated Diagnosis Comments COMPREHENSIVE METABOLIC PANEL Routine 08/15/2017 12:32 PM CDT Mixed hyperlipidemia CHOLESTEROL, LDL, DIRECT Routine 08/15/2017 12:29 PM CDT Mixed hyperlipidemia documented in this encounter Results * (ABNORMAL) Comprehensive metabolic panel (08/15/2017 12:32 PM CDT) Glucose 113(H) 65 - 99 mg/dL [facility] Comment: Fasting reference interval For someone without known diabetes, a glucose value between 100 and 125 mg/dL is consistent with prediabetes and should be confirmed with a follow-up test. BUN 19 7 - 25 mg/dL [facility] Creatinine 0.94 0.50 - 1.05 mg/dL [facility] Comment: For patients >49 years of age, the reference limit for Creatinine is approximately 13% higher for people identified as -Macedonian. eGFR NON-AFR. MONEGASQUE 66 > OR = 60 mL/min/1 .73m2 [facility] EGFR 77 > OR = 60 mL/min/1 .73m2 [facility] BUN/creat ratio NOT APPLICABLE 6 - 22 (calc) [facility] Sodium 141 135 - 146 mmol/L [facility] Potassium, pl 4.3 3.5 - 5.3 mmol/L [facility] Chloride 104 98 - 110 mmol/L [facility] CO2 27 20 - 31 mmol/L [facility] Calcium 10.4 8.6 - 10.4 mg/dL [facility] Protein, sr 7.4 6.1 - 8.1 g/dL [facility] Albumin 5.1 3.6 - 5.1 g/dL [facility] GLOBULIN 2.3 1.9 - 3.7 g/dL (calc) [facility] Alb/glob ratio 2.2 1.0 - 2.5 (calc) [facility] Bilirubin, total 0.4 0.2 - 1.2 mg/dL [facility] Alk phos 78 33 - 130 U/L [facility] AST 16 10 - 35 U/L [facility] ALT (SGPT) 16 6 - 29 U/L [facility] Blood specimen (specimen) 08/15/2017 12:32 PM CDT 08/15/2017 12:32 PM CDT Narrative [facility] - 08/16/2017 3:43 AM CDT FASTING:YES FASTING: YES Resulting Agency Comment Performing Organization Information: Site ID: [id number] Name: [facility] Address: [address] [place] [address] [place] [address] Director: Lazaro Singh D.O., MPH Minerva Trejo MD LAB BLOOD ORDERABLES Final Result Performing Organization Address [facility] de Phone Number [facility] * Cholesterol, LDL, direct (08/15/2017 12:29 PM CDT) LDL, direct 79 <100 mg/dL [facility] Comment: Greatly elevated Triglycerides values (>1200 mg/dL) interfere with the dLDL assay. As no Triglycerides testing was ordered, interpret results with caution. Desirable range <100 mg/dL for patients with CHD or diabetes and <70 mg/dL for diabetic patients with known heart disease. Blood specimen (specimen) 08/15/2017 12:29 PM CDT 08/15/2017 12:30 PM CDT Narrative [facility] - 08/16/2017 4:25 AM CDT FASTING:YES FASTING: YES Resulting Agency Comment Performing Organization Information: Site ID: [id number] Name: [facility] Address: [address] [facility] [place] [address] Director: Lazrao Singh D.O. MPH us Minerva Trejo MD LAB BLOOD ORDERABLES Final Result Performing Organization Address [facility] Co de Phone Number [facility] documented in this encounter Visit Diagnoses Diagnosis Mixed hyperlipidemia- Primary documented in this encounter Care Teams Collection Coordinator Relationship Specialty Start Date End Date Minerva Trejo MD PCP - General 08/26/16 Robby Borges DO [address] [place] [address] Orthopedic Surgery 02/14/17 Heriberto Carreon DO [address] [place] [address] Psychiatry 02/14/17 Zayda Fields MD [address] [place] [address] Referring Physician Family Medicine 08/15/17 08/20/18 Robby Mays MD [address] [facility] [address] [address] Consulting Physician Gastroenterology 08/15/17 08/20/18 Yesenia Duncan [address] [facility] [address] [address] Referring Physician Ophthalmology 08/21/18 Omid Amin MD [address] [facility] [address] [address] Referring Physician Orthopedic Surgery 08/11/20 John Escoto DO [address] [facility] [address] [place] [address] Orthopedic Surgery 07/26/24 Nish Palmer MD [address] [place] [address] Orthopedic Surgery 11/04/24 Jose Harding MD [address] [place] [phone] Anesthesiology 11/04/24 documented as of this encounter
--- OUTSIDE RECORDS SUMMARY | 2025-01-30 17:19 | XMS_ITS | Patient Health Record ---
Author Organization [facility] Address [address] [place], [place] [id number] Care Team Providers Care Battery Stacker Name Role Phone ESTERMAIN YARBROUGH Unavailable [phone] Renay Trejo Unavailable Unavailable Reason For Referral No Information Plan Of Treatment No Information Insurance Providers Payer Name Payer Address Payer Phone Subscriber Number Group Number Insured Name Patient Relationship to Insured Coverage Start Date Coverage End Date [employer] [address] [place] [address] [id number] CALOS MAJOR Self - patient is the insured
--- OUTSIDE RECORDS SUMMARY | 2025-01-30 17:19 | XMS_ITS | Encounter Summary ---
Author Organization [facility] Health Address [address] [place] [address] Care Team Providers Care Sap Director Name Role Phone Renay Trejo MD Primary Care Provider [phone] Cecilia Hall RN Unavailable Reason for Visit * Reason Onset Date Comments Concerns 01/10/2025 Encounter Details Date Type Department Care Team (Late st Contact Info) Description 01/10/2025 Telephone [facility] - Orthopedic Surgery [address] [place] [address] Nish Palmer MD [address] [place] [address] Concerns Social History Tobacco Use Types Packs/Day Years Used Date Smoking Tobacco: Former Cigarettes Q uit: 11/18/2024 Smokeless Tobacco: Never Alcohol Use Standard Drinks/Week Comments No 0 (1 standard drink = 0.6 oz pur e alcohol) PHQ-2 Answer Date Recorded Patient Health Questionnaire-2 Score 2 12/26/2024 Comments No Sex and Gender Information Value Date Recorded Sex Assigned at Not on file 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 Answer Date of Assessment Author No 09/02/2015 8:31 AM CDT Alfredo Liz RN * Is person blind or have serious difficulty seeing? Answer Date of Assessment Author No 09/02/2015 8:31 AM ALTAGRACIAT Alfredo Liz RN * Does person have serious difficulty walking/climbing stairs? Answer Date of Assessment Author No 09/02/2015 8:31 AM ALTAGRACIAT Alfredo Liz RN * Does person have difficulty dressing/bathing? Answer Date of Assessment Author No 09/02/2015 8:31 AM ALTAGRACIAT Alfredo Liz RN * Does person have difficulty doing errands alone? Answer Date of Assessment Author No 09/02/2015 8:31 AM ALTAGRACIAT Alfredo Liz RN documented as of this encounter Mental Status * Does person have difficulty concentrating/remembering/making decisions? Answer Entry Date Author No 09/02/2015 8:31 AM Alfredo Contreras RN documented in this encounter Miscellaneous Notes * Telephone Encounter - Keara Avila - 01/10/2025 1:05 PM CDT Pt called stating her surgery was denied and she needs an expedited appeal. Please call the number below and they will send you to the right department per pt. documented in this encounter Plan of Treatment Upcoming Encounters Date Type Department Care Team (Late st Contact Info) Description 02/07/2025 11:00 AM CDT Office Visit [facility] [address] [place] [address] Minerva Krishnamurthy, OUTREACH EDUCATOR-KINESEOLOGIST [address] [place] [address] 02/20/2025 9:45 AM CDT Office Visit [facility] - Orthopedic Surgery [address] [place] [address] Nish Palmer MD [address] [place] [address] documented as of this encounter Visit Diagnoses Not on filedocumented in this encounter Care Teams Sap Director Relationship Specialty Start Date End Date Renay Trejo MD [address] [place] [phone] PCP - General Internal Medicine 10/03/14 Cecilia Hall, RN Retail Salesworker 09/03/15 documented as of this encounter
--- OUTSIDE RECORDS SUMMARY | 2025-01-30 17:19 | XMS_ITS | Clinical Summary ---
Author Organization [facility] Address [address] [place] [address] Care Team Providers Care Coal Trimmer Name Role Phone Minerva Trejo MD Primary Care Provider [phone] Encounters Date Type Department Care Team Description 01/22/[address] [place] [address] [place] [address] Scanned, [facility] from Last 3 Months Social History Tobacco Use Types Packs/Day Years Used Date Smoking Tobacco: Never Assessed Comments Unknown Sex and Gender Information Value Date Recorded Sex Assigned at Not on file Legal Sex Female 4:13 PM CDT Gender Identity Not on file Sexual Orientation Not on file Plan of Treatment Health Maintenance Due Date Last Done Comments Colorectal Cancer Screening Colonoscopy (10 Years) 1960 Hepatitis C 01/22/1976 Pneumococcal Vaccine: 50+ Years (1 of 1 - PCV) 01/22/2008 Zoster Vaccines (1 of 2) 01/22/2008 Annual Medicare Wellness Visit 2023 COVID-19 Vaccine (1 - 2023- season) 2025 DTaP, Tdap and Td Vaccines (2 - Td or Tdap) 08/09/2026 08/09/2016 Mammogram Screening 11/04/2026 11/04/2024, 09/04/2023, 08/17/2022, Additional history exists RSV Immunization or 60+ Years (1 - 1-dose 75+ series) 2033 Dexa Scan (General) Completed 03/21/2023, Meningococcal B Vaccine Aged Out No l onger eligible based on patient's age to complete this topic Meningococcal Vaccine Aged Out No amanda rajani eligible based on patient's age to complete this topic RSV Immunizations Under 20 Months Aged Out No longer eligible based on patient's age to complete this topic Insurance AETNA AETNA Care Teams Coal Trimmer Relationship Specialty Start Date End Date Minerva Trejo MD [address] [place] [address] PCP - General 11/15/14
--- OUTSIDE RECORDS SUMMARY | 2025-01-30 17:19 | XMS_ITS | Encounter Summary ---
Author Organization [facility] Healthcare Address [address] [place] [address] Care Team Providers Care Record Keeper Name Role Phone Minerva Trejo MD Primary Care Provider + [phone] Robby Borges DO Unavailable Heriberto Carreon DO Unavailable [phone] Yesenia Dunacn DO Unavailable [phone] Omid Amin MD Unavailable John Escoto DO Unavailable + Nish Palmer MD Unavailable Jose Harding MD Unavailable Encounter Details Date Type Department Care Team (Late st Contact Info) Description 12/27/[address] 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 Gender Identity Not on file Sexual Orientation Not on file Occupation Industry Job Start Date Job End Date disabled Not on file Not on file Not on file documented as of this encounter Plan of Treatment Not on file documented as of this encounter Procedures Procedure Name Priority Date/Time Associated Diagnosis Comments SCAN - LABS 12/27/2024 documented in this encounter Results * SCAN - LABS (12/27/2024) us Provider Scanning Final Result documented in this encounter Visit Diagnoses Not on filedocumented in this encounter Care Teams Record Keeper Relationship Specialty Start Date End Date Minerva Trejo MD PCP - General 08/26/16 Robby Borges DO [address] [place] [address] Orthopedic Surgery 02/14/17 Heriberto Carreon DO [address] [place] [address] Psychiatry 02/14/17 Yesenia Duncan DO [address] [place] [address] Referring Physician Ophthalmology 08/21/18 Omid Amin MD [address] [place] [address] Referring Physician Orthopedic Surgery 08/11/20 John Escoto DO [address] [facility] [address] [place] [address] Orthopedic Surgery 07/26/24 Nish Palmer MD [address] [place] [phone] Orthopedic Surgery 11/04/24 Jose Harding MD [address] [place] [phone] Anesthesiology 11/04/24 documented as of this encounter
--- OUTSIDE RECORDS SUMMARY | 2025-01-30 17:19 | XMS_ITS | Clinical Summary ---
Author Organization [facility] [address] Address [address] [place] [address] Phone Care Team Providers Care Computer Programmer Chief Name Role Phone Minerva Montelongo MD Primary Care Provider + [phone] Robby Borges DO Unavailable Heriberto Carreon DO Unavailable Yesenia Duncan DO Unavailable [phone] Omid Amin MD Unavailable John Escoto DO Unavailable + Nish Palmer MD Unavailable Jose Harding MD Unavailable Allergies Active Allergy Reactions Criticality Noted Date Comments Aspirin Unknown Low Buprenorphine Rash Medium 09/02/2015 Reaction: Rash, Egg Unknown Low Egg Derived Anaphylaxis High 10/03/2014 Measles, pneumonia, flu shot Egg White Unknown Low 09/01/2015 Lecithin,Egg Anaphylaxis High 10/03/2014 Measles, pneumonia, flu shot Propofol Anaphylaxis High 10/03/2014 Propoxyphene Unknown Low Medications lamoTRIgine (LaMICtal) 150 mg tablet TK 1 T PO BID 2 09/22/19 19 Active ALPRAZolam (XANAX) 1 mg tablet TK 1 T PO BID AND 2 T QHS 2 10/20/19 19 Active hydrOXYzine (VISTARIL) 25 mg capsule Take 1 capsule (25 mg total) by mouth 4 (four) times a day as needed for itching Active ketoconazole 1 % shampoo Apply topically Active clobetasoL (CLOBEX) 0.05 % lotion Apply topically 2 (two) times a day Active acetaminophen (TYLENOL) 500 mg tabletIndications:Left hip pain,Chronic pain of left knee,Chronic pain of right ankle Take 1 tablet (500 mg total) by mouth 3 (three) times a day as needed for pain 05/01/20 24 Active albuterol HFA (Ventolin HFA) 90 mcg/actuation inhalerIndications: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 (HCC) Inhale 2 puffs every 4 (four) hours as needed for wheezing or shortness of breath 8 g 5 05/01/20 24 Active cholecalciferol (VITAMIN D-3) 50,000 unit capsuleIndications:Ost eoporosis, idiopathic,Vitamin D deficiency,Secondary hyperparathyroidism Take 1 capsule (50,000 Units total) by mouth once a week 05/16/20 24 Active latanoprost (XALATAN) 0.005 % ophthalmic solution Administer 1 drop into affected eye(s) nightly 03/25/20 24 Active budesonide-formoteroL (Symbicort) 80-4.5 mcg/actuation inhalerIndications: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 (HCC) Inhale 2 puffs 2 (two) times a day 1 each 6 11/05/19 25 Active gabapentin (NEURONTIN) 300 mg capsuleIndications:Cer vical spinal stenosis Take 1 capsule (300 mg total) by mouth nightly as needed (Diabetic skin irritation) 30 capsule 6 11/05/19 25 Active pravastatin (PRAVACHOL) 40 mg tabletIndications:Mult iple-type hyperlipidemia Take 1 tablet (40 mg total) by mouth daily with dinner 90 tablet 2 11/05/19 25 Active tiZANidine (ZANAFLEX) 2 mg tabletIndications:Musc le spasm,Recurrent low back pain Take 1 tablet (2 mg total) by mouth every 8 (eight) hours as needed for muscle spasms 40 tablet 6 11/05/19 25 Active valsartan-hydroCHLOROt hiazide (DIOVAN-HCT) 160-12.5 mg per tabletIndications:hype rtension Take 1 tablet by mouth daily 90 tablet 08/11/20 25 Active valsartan-hydroCHLOROt hiazide (DIOVAN-HCT) 160-12.5 mg per tabletIndications:hype rtension Take 1 tablet by mouth daily 30 tablet 6 11/05/19 25 2024 Manisha santiago(Reo rder) Active Problems Problem Noted Date Diagnosed Date Anxiety 09/03/2024 Assessment & Plan (09/03/2024 2:46 PM CDT): Chronic, unstable Differential diagnoses: Generalized anxiety disorder v bipolar disorder v manic episode Relative history: History of bipolar Current meds: Xanax Follows w/ Dr. Carreon psychiatry, [place], [place] Today's Plan: Continue Xanax as ordered Discussed anxiety in relation to HTN. It is imperative to manage anxiety for overall health. Follow-up with psychiatry as scheduled Chronic left-sided low back pain with left-sided sciatica 09/03/2024 Assessment & Plan (09/03/2024 2:49 PM CDT): Chronic, labile Follows with Dr. Palmer (ortho-Spine) at [facility] Received cortisone injection 08/24 per ortho spine Has imaging scheduled: MRI and CT and follow-up with Dr. Palmer next month Aqua therapy evaluation tomorrow 09/04 Current meds: none Today's Plan: Move forward with aqua therapy evaluation Monitor cortisone effectiveness Lab/imaging orders today: Imaging per Dr. Palmer Follow-up with Monday as scheduled Vitamin D deficiency 05/16/2024 Osteoporosis, idiopathic 05/01/2024 Overview (05/01/2024): DEXA March 17, 2023 Lumbar spine test -0.2 Hip test -1.7 Intertrochanteric hip test -1.9 FRAX (+) osteoporosis overall fracture 17%, hip fracture risk 3.7% ==== DEXA bone density 2016 Lumbar spine = test -0.2 Hip test -1.1 Microalbuminuria 02/16/2022 Medical marijuana use 05/01/2019 Open-angle glaucoma 08/21/2018 Prediabetes 08/13/2017 Overview (08/13/2021): Diet and exercise management of the problem Tobacco dependence syndrome 10/12/2013 Overview (08/14/2020): CT lung cancer screening ordered July 2020 however lung cancer screening facility declined stating for overall nicotine burden was not high enough to allow CT scanning Assessment & Plan (09/03/2024 1:29 PM CDT): Chronic, Unstable, and Improving History possibly contributing to diagnosis: COPD, HTN Current therapy (ies)/home meds: No nicotine replacement therapy Social History Tobacco Use Smoking Status Some Days Current packs/day: 0.50 Average packs/day: 0.5 packs/day for 40.0 years (20.0 ttl pk-yrs) Types: Cigarettes Smokeless Tobacco Never Medications ordered today: No medications initiated today for smoking cessation Smoking cessation counseling and techniques reviewed today including medication and techniques to help stop smoking. Discussed triggers and using distraction techniques Medication options discussed today, agreed to let me know if she wants to try prescription interventions in the future. Resources given: [place] Tobacco Quit line: 3-611-NFDP-YES for free services Help! I Want to Quit Smoking! [place] [employer] website Www.quit.com (nicotine replacement therapy options) Www.https://www.cdc.gov/tobacco/about/how-to-quit.html 7 minutes spent discussing cessation Multiple-type hyperlipidemia 10/12/2013 Overview (08/31/2016): Hyperlipemia, mixed Herpes simplex type 2 infection 10/12/2013 Overview (09/02/2016): HSV-2 (herpes simplex virus 2) infection Benign hypertension 10/12/2013 Overview (09/02/2016): Benign essential HTN Assessment & Plan (09/03/2024 2:43 PM CDT): Chronic and Unstable Differential diagnoses: HTN 2/2 essential/benign v nicotine/tobacco use v prediabetes v stress History possibly contributing to diagnosis: Smoker Manual BP today: 135/68 Checked BP with home BP cuff: 125/77 Current therapy (ies)/home meds: Valsartan HCTZ Today's plan: Medications ordered today: Continue meds as above Blood pressure goal: 130/80 Continue taking BP at home twice daily, bring log to follow-up appointment Discussed Smoking cessation essential for HTN control Discussed blood pressure fluctuations throughout the day, normal Discussed pain and anxiety contributing to HTN Education provided. Recommendations: Diet: recommend heart healthy diet including balanced diet of proteins, green leafy vegetables, moderate carbohydrate and dairy intake (largely low salt, low fat) Recommend regular exercise. AHA recommends at least 30 minutes daily of elevated heart rate above 130 beats per minute (bpm) Encouraged patient to manage stress appropriately Assessment & Plan (05/10/2023 4:35 PM EXPANSION JOINT FINISHER): Bp mildy elevated in office today at 156/80 (85).asymptomatic, no acute findings on exam. States it's always lower at home. Likely elevated due to pain, see plan for shoulder pain above. Continue current regimen and low salt diet. HLA B27 (HLA B27 positive) 08/30/2013 Overview (09/02/2016): HLA B27 (HLA B27 positive) Bipolar I disorder, most recent episode depresse d 06/17/2013 Overview (08/31/2016): Bipolar depression COPD with asthma 06/17/2013 Overview (09/02/2016): COPD with emphysema Resolved Problems Problem Noted Date Diagnosed Date Resolved Date Chronic right shoulder pain [M25.511, G89.29] 05/10/20 23 05/01/2024 Assessment & Plan (05/10/2023 4:33 PM EXPANSION JOINT FINISHER): See HPI for details, tenderness, decreased ROM and mild weakness as noted above. Given 40mg Kenalog into R shoulder using posterior approach as noted above. Rxd Medrol pack as directed. Continue Tylenol PRN. Heat/ice as tolerated. Offered PT consult, patient refused at this time. Chronic pain disorder 08/15/20172018 Overview (02/16/2018): Ankle disability with previous repair, bilateral knee repair, severe arthritis in the neck. Arthritis 08/15/2017 09/03/2024 Arthralgia of ankle 03/05/2014 05/01/20 Chronic rhinitis 10/12/2013 05/01/2019 Overview (08/31/2016): Chronic rhinitis Intertrigo 10/12/2013 08/15/2017 Overview (08/31/2016): Intertrigo Drug indicated 10/12/2013 08/15/2017 Overview (09/02/2016): NSAID long-term use Fibrositis 08/09/2013 08/15/2017 Overview (09/02/2016): Fibromyalgia Anemia due to chronic blood loss 09/04/2012 08/15/2017 Overview (08/31/2016): CHR BLOOD LOSS ANEMIA Right upper quadrant abdominal pain 09/04/2012 08/15/2017 Overview (09/02/2016): ABDMNAL PAIN RT UPR QUAD Encounters Date Type Department Care Team Description 01/30/2025 Telephone [facility] [address] [place] [address] Minerva Montelongo MD 01/22/2025 Telephone [facility] [address] [place] [address] Minerva Montelongo MD Spoke With Home Health Provider 2025 Telephone [facility] [address] [place] [address] Violeta Roland 01/14/2025 4:00 PM CDT Telemedicine [facility] [address] [place] [address] Minerva Montelongo MD Pre-op evaluation (Primary Dx); Cervical spinal stenosis; Benign hypertension; History of vitamin D deficiency; Moderate tobacco dependence in early remission; Immunization counseling 01/06/2025 Telephone [facility] [address] [facility] [address] [place] [address] Minerva Montelongo MD 01/02/2025 Orders Only [facility] [address] [place] [id number] Scanning, Provider 12/27/2024 Orders Only [facility] [address] [facility] [address] [place] [address] Scanning, Provider 11/05/2024 Results [facility] [address] [place] [address] Minerva Montelongo MD Vitamin D 25 hydroxy, PTH, Lipid panel, Additional followed-up results: 4 11/04/2024 1:45 PM CDT Office Visit [facility] [address] [facility] [address] [place] [address] Minerva Montelongo MD Chronic pain disorder (Primary Dx); Cervical spinal stenosis; Recurrent low back pain; SI joint arthritis; Left hip pain; Osteoporosis, idiopathic; Vitamin D deficiency; Secondary hyperparathyroidi sm; Nicotine dependence, cigarettes, uncomplicated; COPD with asthma ([facility]); Prediabetes; Microalbuminuria; Benign hypertension; Multiple-type hyperlipidemia; Muscle spasm; Bipolar I disorder, most recent episode depressed ([facility]); Menopause 11/04/2024 1:10 PM CDT Ancillary Procedure [facility] [address] [facility] [address] [place] [address] Encounter for screening mammogram for breast cancer 11/04/2024 1:00 PM CDT Lab [facility] [address] [facility] [address] [place] [address] Vitamin D deficiency; Prediabetes from Last 3 Months Immunizations Immunization Administration Dates Next Due Influenza, Unspecified 05/01/2024(Deferr ed: Patient Refused),03/29/2023(Deferred: Patient Refused) Pneumococcal Conjugate Pcv20 05/01/2024( Deferred: Patient Refused),03/29/2023(Deferred: Patient Refused) Tdap 08/09/2016 ZOSTER Recombinant 05/01/2024(Deferred: Patient Refused) Surgical History Surgery Date Site/Laterality Comments RHINOPLASTY rhinoplasty APPENDECTOMY Appendectomy TUBAL LIGATION Bilateral tubal ligation OTHER SURGICAL HISTORY 05/29/2010 - 05/28/2011 L5-S1 lt cages with syntheic bone OTHER SURGICAL HISTORY 05/29/2010 - 05/28/2011 ORIF right ankle KNEE ARTHROSCOPY 05/29/2004 - 05/28/2005 Arthroscopy knee CHOLECYSTECTOMY 05/29/2004 - 05/28/2005 Cholecystectomy BLADDER SUSPENSION TOTAL ABDOMINAL HYSTERECTOMY 05/29/1998 - 05/28/1999 Hysterectomy COLONOSCOPY 05/29/2004 - 05/28/2005 COLONOSCOPY 09/12/2020 (-) Cologuard, did not have a colonoscopy this time, March 2021 insurance fit (-) OOPHORECTOMY HM DNA STOOL 11/16/2023 Cologuard (-) Medical History Medical History Date Comments Rhinitis Asthma DJD (degenerative joint disease) back Carpal tunnel syndrome Anxiety and depression Back pain 04/01/2003 Hypertension Glaucoma 08/2006 HSV-2 (herpes simplex virus 2) infection 04/2007 COPD (chronic obstructive pulmonary disease) Anemia 07/2012 1 para 1 Smoking Family History Medical History Relation Name Comments Alcohol abuse Father Liver disease Father Diabetes type II Mother Kidney disease Mother Diabetes Nephew Diabetes Other Family history of Diabetes mellitus; Relation Name Status Comments Father Mother Nephew Other Social History Tobacco Use Types Packs/Day Years Used Date Smoking Tobacco: Some Days Cigarettes 0.5 40 Smokeless Tobacco: Never Tobacco Cessation:Ready to Q uit: Not Asked; Counseling Given: Not Answered Alcohol Use Standard Drinks/Week Comments No 0 (1 standard drink = 0.6 oz pur e alcohol) PHQ-2 Answer Date Recorded PHQ-2 Total Score (If total score is 3 or more points, staff should administer the PHQ-9) 0 05/01/2024 Comments No Sex and Gender Information Value Date Recorded Sex Assigned at Not on file Legal Sex Female 6:03 PM EXPANSION JOINT FINISHER Gender Identity Not on file Sexual Orientation Not on file Occupation Industry Job Start Date Job End Date disabled Not on file Not on file Not on file Obstetrics History Para Term AB IAB SAB Ectopic Multiple Livin g Live Births 1 1 1 Date Outcome GA Total Labor Labor/2nd/3rd Weight Sex Type Anes PTL Evi A1 A5 Name Clin Term Last Filed Vital Signs Vital Sign Reading Time Taken Comments Blood Pressure 132/72 11/04/2024 1:49 PM CDT Pulse 119 11/04/2024 1:49 PM CDT Temperature 36.5 C (97.7 F) 11/04/2024 1:49 PM CDT Respiratory Rate 18 11/04/2024 1:49 PM CDT Oxygen Saturation 97% 11/04/2024 1:49 PM CDT Inhaled Oxygen Concentration - - Weight 76.7 kg (169 lb) 11/04/2024 1:49 PM CDT Height 157.5 cm (5' 2) 11/04/2024 1:49 PM CDT Body Mass Index 30.91 11/04/2024 1:49 PM CDT Plan of Treatment Health Maintenance Due Date Last Done Comments Covid-19 Vaccine (2024-06 6 season) 2025 10/07/2020, 09/09/2020 Osteoporosis Screening-Bone Density Scan 03/21/2025 03/21/2023 Lung Cancer Screening 04/20/2025 04/19/2024, 023 Depression Screening 05/01/2025 05/01/2024, 03/02/2023, 03/02/2023, Additional history exists Fall Risk Assessment 05/01/2025 05/01/2024, 03/02/2023, 02/12/2021, Additional history exists Well Visit 65+ 05/01/2025 05/01/2024, 09/2022, 02/16/2022, Additional history exists Breast Cancer Screening-Mammogram 11/04/2025 11/04/2024, 09/04/2023, 08/17/2022, Additional history exists DTaP/Tdap/Td Vaccine (2 - Td or Tdap) 08/09/2026 08/09/2016 Colon Cancer Screening-Colonoscopy 11/12/2033 11/13/2023 Hepatitis C Screening Completed 06/02/2016 Colon Cancer Screening-DNA Stool Discontinued 11/13/2023, 03/02/2021, 09/12/2017 Colon Cancer Screening-FIT Discontinued 11/12, 03/02/2021, 09/12/2017 Hepatitis B Screening Completed 05/01/2024 Influenza Vaccine Discontinued Pneumococcal vaccine 65+ Discontinued Zoster Vaccine Discontinued Procedures Procedure Name Priority Date/Time Associated Diagnosis Comments SCAN - LABS 01/02/2025 SCAN - LABS 12/27/2024 SCREENING MAMMOGRAM BILATERAL W BRIDGER Schedule Routine, Read Routine (OP Routine) 11/04/2024 1:12 PM CDT Encounter for screening mammogram for breast cancer EGFR Routine 11/04/2024 12:59 PM CDT Prediabetes HEMOGLOBIN A1C Routine 11/04/2024 12:59 PM CDT Prediabetes COMPREHENSIVE METABOLIC PANEL Routine 11/04/2024 12:59 PM CDT Prediabetes ALBUMIN CREATININE RATIO, URINE Routine 11/04/2024 12:59 PM CDT Prediabetes LIPID PANEL Routine 11/04/2024 12:59 PM CDT Prediabetes PTH Routine 11/04/2024 12:59 PM CDT Vitamin D deficiency VITAMIN D 25 HYDROXY Routine 11/04/2024 12:59 PM CDT Vitamin D deficiency CT LUNG CANCER SCREENING Schedule Routine, Read Routine (OP Routine) 04/19/2024 2:24 PM EXPANSION JOINT FINISHER Tobacco dependence syndrome Nicotine dependence, cigarettes, uncomplicated STOOL DNA COLOGUARD Routine 11/13/2023 9:00 AM CDT Colon cancer screening DEXA AXIAL SKELETON BONE DENSITY 1 OR MORE SITES Schedule Routine, Read Routine (OP Routine) 03/21/2023 1:14 PM CDT Menopause HEPATITIS C ANTIBODY Routine 06/02/2016 2:51 PM EXPANSION JOINT FINISHER from Last 3 Months or Most Recently Relevant to Health Maintenance Results * SCAN - LABS (01/02/2025) us Provider Scanning Final Result * SCAN - LABS (12/27/2024) us Provider Scanning Final Result * Screening Mammogram Bilateral W Bridger (11/04/2024 1:12 PM CDT) Anatomical Region Laterality Modality Breast Bilateral Mammography Impressions 11/04/2024 9:48 PM CDT There is no mammographic evidence of malignancy. A 1 year screening mammogram is recommended. BI-RADS: 1 - Negative. The patient has been or will be contacted. The patient will be entered into a reminder system with a target due date of 1 year for her next mammogram. Narrative 11/04/2024 9:48 PM CDT EXAMINATION: SCREENING MAMMOGRAM BILATERAL W BRIDGER ORDERING HEALTHCARE PROVIDER: MINERVA MONTELONGO HISTORY: Routine screening mammography. COMPARISON: 11/04/2024, 08/17/2022, 03/01/2021, 01/13/2020 TECHNIQUE: CC and MLO views of the bilateral breasts were obtained with digital technique using breast tomosynthesis with C view. Computer aided detection was utilized. FINDINGS: DENSITY: There are scattered fibroglandular elements in the bilateral breasts. BREASTS: There are benign calcifications in both breasts. There are no suspicious masses, suspicious calcifications, or other suspicious findings in either breast. There has been no suspicious interval change. Minerva Montelongo MD IMG MAMMO PROCEDURES Final Result * (ABNORMAL) eGFR (11/04/2024 12:59 PM CDT) eGFR 50(L) >=60 mL/min/1. 73 m2 Comment: Interpretive Data Reference Interval Normal >/= 90 mL/min/1.73m2 Mildly decreased* 60 - 89 mL/min/1.73m2 Mildly to moderately decreased 45 - 59 mL/min/1.73m2 Moderately to severely decreased 30 - 44 mL/min/1.73m2 Severely decreased 15 - 29 mL/min/1.73m2 Kidney Failure < 15 mL/min/1.73m2 *Relative to young adult level Estimated glomerular filtration rate is determined by the 2020 CKD-EPI equation recommended by the National Kidney Foundation (A Unifying Approach to GFR Estimation: Recommendations of the NKF-ASK Task Force on Reassessing the Inclusion of Race in Diagnosing Kidney Disease, JASN 2020). The CKD-EPI equation should not be used for patients with unstable renal function and has not been validated in children and those over 70. Current interpretive data was last reviewed 2021. Testing performed by: [address] [address] Blood 11/04/2024 12:5 9 PM CDT 11/04/2024 8:57 PM CDT us Minerva Montelongo MD LAB BLOOD ORDERABLES Final Result Performing Organization Address [facility] Co de Phone Number WILLIE [address] [address] [place] [address] * Albumin Creatinine Ratio, Urine (11/04/2024 12:59 PM CDT) Albumin Ur <12.0 mg/L Comment: Interpretive Data No reference range established. Current interpretive data was last revised 2018. Testing performed by: [address] [address] Creatinine Ur 43.2 mg/dL WILLIE Comment: Interpretive Data No reference range established. Current interpretive data was last revised 2018. Testing performed by: [address] [address] Albumin Creatinine Ratio, Ur <28 1 - 29 mg/g [facility] Comment:Testing performed by : [address] [address] Urine 11/04/2024 12:5 9 PM CDT 11/04/2024 8:26 PM CDT us Minerva Montelongo MD LAB URINE ORDERABLES Final Result Performing Organization Address City/[facility] Co de Phone Number WILLIE [address] [address] [place] [address] * Vitamin D 25 hydroxy (11/04/2024 12:59 PM CDT) [facility] Vitamin D 25-OH 78 30 - 80 ng/mL Comment:Testing performed by : [address] [address] Blood 11/04/2024 12:5 9 PM CDT 11/04/2024 8:27 PM CDT us Minerva Montelongo MD LAB BLOOD ORDERABLES Final Result Performing Organization Address [facility] Co de Phone Number [place] [phone] [facility] [place] [address] * (ABNORMAL) PTH (11/04/2024 12:59 PM CDT) [facility] PTH 81(H) 15 - 65 pg/mL Comment:Testing performed by : [address] [address] Blood 11/04/2024 12:5 9 PM CDT 11/04/2024 8:27 PM CDT us Minerva Montelongo MD LAB BLOOD ORDERABLES Final Result Performing Organization Address [facility] de Phone Number [address] [place] [address] * Hemoglobin A1c (11/04/2024 12:59 PM CDT) [facility] Hgb A1C 5.1 4.0 - 5.6 % Comment:Testing performed by : [address] [address] Estimated Average Glucose 100 mg/dL WILLIE Comment: The ADA recommends reporting an estimated Average Glucose (eAG) with all Hemoglobin A1c results using the equation derived from a study of 507 normal and diabetic adults. Minority populations were underrepresented and children were not included. (Diabetes Care 31:2336-7861, 2008). The eAG is not equivalent to a fasting glucose. Testing performed by: [address] [address] Blood 11/04/2024 12:5 9 PM CDT 11/04/2024 8:27 PM CDT us Minerva Montelongo MD LAB BLOOD ORDERABLES Final Result WILLIE [id number] [place] [address] [place] [address] * Lipid panel (11/04/2024 12:59 PM CDT) Cholesterol 165 30 - 199 mg/dL Comment: Interpretive Data Ages < or = 19 years Acceptable: <170 mg/dL Borderline high: 170-199 mg/dL High: >or= 200 mg/dL Ages > or = 20 years Desirable: <200 mg/dL Borderline high: 200-239 mg/dL High: >or= 240 mg/dL Literature References: 1. Expert Panel on Integrated Guidelines for Cardiovascular Health and Risk Reduction in Children and Adolescents. Pediatrics 2011;128:S213 2. NCEP Expert Panel. Circulation 2004;110:227 Current Interpretive Data was last revised on 2018. Testing performed by: [facility], [address] [place] [address]., [address] Triglycerides 111 <=149 mg/dL WILLIE COYNE Comment: Interpretive Data Ages < or = 9 years Acceptable: <75 mg/dL Borderline high: 75-99 mg/dL High: >or= 100 mg/dL Ages 10 to 20 years Acceptable: <90 mg/dL Borderline high: 90-129 mg/dL High: >or= 130 mg/dL Ages > or = 20 years Desirable: <150 mg/dL Borderline high: 150-199 mg/dL High: 200-499 mg/dL Very high: >or= 499 mg/dL Literature References: 1. Expert Panel on Integrated Guidelines for Cardiovascular Health and Risk Reduction in Children and Adolescents. Pediatrics 2011;128:S213 2. NCEP Expert Panel. Circulation 2004;110:227 Current Interpretive Data was last revised on 2018. Testing performed by: [facility], [address] [place] [address]., [address] HDL 79 >=40 mg/dL WILLIE COYNE Comment: Interpretive Data Ages < or = 19 years Acceptable: >45 mg/dL Borderline low: 40-45 mg/dL Low: <40 mg/dL Ages > or = 20 years Desirable: >or= 60 mg/dL Low: <40 mg/dL Literature References: 1. Expert Panel on Integrated Guidelines for Cardiovascular Health and Risk Reduction in Children and Adolescents. Pediatrics 2011;128:S213 2. NCEP Expert Panel. Circulation 2004;110:227 Current Interpretive Data was last revised on 2018. Testing performed by: [facility], [address] [place] [address]., [address] LDL, calculated 67 <=129 mg/dL WILLIE Comment: Interpretive Data Ages < or = 19 years Acceptable: <110 mg/dL Borderline high: 110-129 mg/dL High: >or= 130 mg/dL Ages > or = 20 years Optimal: <100 mg/dL Near optimal: 100-129 mg/dL Borderline high: 130-159 mg/dL High: >160 mg/dL Calculated using the Greg LDL-C estimating equation. This equation was implemented on 2024. Prior to this date LDL-C was estimated using the Friedewald equation. Literature References: 1. Expert Panel on Integrated Guidelines for Cardiovascular Health and Risk Reduction in Children and Adolescents. Pediatrics 2011;128:S213 2. NCEP Expert Panel. Circulation 2004;110:227 3. Greg Marti et al. MEGAN Cardiol. 2020 September 26;5(5):540-548. doi: 10.1001/jamacardio.2020.0013 Current Interpretive Data was last revised on 2024. Testing performed by: [facility], [address] [place] [address]., [address] Non-HDL Cholesterol 86 mg/dL WILLIE Comment: Interpretive Data Ages < or = 19 years Acceptable: <120 mg/dL Borderline high: 120-144 mg/dL High: >145 mg/dL Ages > or = 20 years When triglycerides are >200 mg/dL, Non-HDL cholesterol is a secondary target of therapy with treatment goals that are 30 mg/dL greater than the LDL cholesterol target. Literature References: 1. Expert Panel on Integrated Guidelines for Cardiovascular Health and Risk Reduction in Children and Adolescents. Pediatrics 2011;128:S213 2. NCEP Expert Panel. Circulation 2004;110:227 Current Interpretive Data was last revised on 2018. Testing performed by: [address] [address] Chol/HDL ratio 2 CERNER Comment:Testing performed by : [address] [address] Blood 11/04/2024 12:5 9 PM CDT 11/04/2024 8:27 PM CDT Minerva Montelongo MD LAB BLOOD ORDERABLES Final Result [address] Department [place] [address] * (ABNORMAL) Comprehensive metabolic panel (11/04/2024 12:59 PM CDT) Sodium 139 135 - 145 mmol/L Comment:Testing performed by : [address] [address] Potassium, pl 4.2 3.3 - 4.9 mmol/L CERNER Comment:Testing performed by : [address] [address] Chloride 100 97 - 110 mmol/L CERNER Comment:Testing performed by : [address] [address] CO2 23 22 - 32 mmol/L CERNER CH Comment:Testing performed by : [address] [address] Anion gap 16(H) 2 - 15 mmol/L CERNER Comment:Testing performed by : [address] [address] BUN 14 6 - 25 mg/dL CERNER Comment:Testing performed by : [address] [address] Creatinine 1.19(H) 0.60 - 1.10 mg/dL CERNER Comment:Testing performed by : [address] [address] Glucose 106 70 - 199 mg/dL CERNER Comment: Interpretive Data Fasting glucose >/= 126 mg/dl is diagnostic for diabetes. Fasting is defined as no caloric intake for at least 8 hours. Fasting glucose between 100 mg/dl to 125 mg/dl is diagnostic of prediabetes. In a patient with classic symptoms of hyperglycemia or hyperglycemic crisis, a random glucose >/= 200 mg/dl is diagnostic for diabetes. In the absence of unequivocal hyperglycemia, results should be confirmed by repeat testing. The classification and Diagnosis of Diabetes Diabetes Care 2021; 46: S19-S40. Current interpretive data was last revised 2022. Testing performed by: [facility], [address] [place] [address]., [address] Calcium 9.8 8.5 - 10.3 mg/dL CERNER Comment:Testing performed by : [address] [address] Bilirubin, total 0.3 0.1 - 1.2 mg/dL CERNER CH Comment:Testing performed by : [address] [address] Protein, pl 7.8 6.5 - 8.5 g/dL CERNER CH Comment:Testing performed by : [address] [address] Albumin 4.6 3.5 - 5.0 g/dL CERNER CH Comment:Testing performed by : [address] [address] Alk phos 95 40 - 130 Units/L CERNER CH Comment:Testing performed by : [address] [address] ALT 26 7 - 45 Units/L CERNER CH Comment:Testing performed by : [address] [address] AST 32 10 - 45 Units/L CERNER CH Comment:Testing performed by : [address] [address] Blood 11/04/2024 12:5 9 PM CDT 11/04/2024 8:27 PM CDT us Minerva Montelongo MD LAB BLOOD ORDERABLES Final Result [place] [address] [address] Department [place] [address] * CT Lung Cancer Screening (04/19/2024 2:24 PM EXPANSION JOINT FINISHER) Anatomical Region Laterality Modality Chest N/A Computed Tomogra phy 04/25/2024 9:29 AM EXPANSION JOINT FINISHER Narrative 04/25/2024 9:40 AM EXPANSION JOINT FINISHER EXAM DESCRIPTION: CT LUNG CANCER SCREENING REASON FOR STUDY: Screening CT of the chest in a current smoker with a 20 pack year smoking history. Additional history: None. TECHNIQUE: Low dose CT scan of the chest was performed without intravenous contrast using helical scanning technique. The exam extends from the lung apices through the lung bases. Automatic exposure control was used as a dose optimization technique. NOTE: This study was performed for the specific purposes of lung cancer screening and is not an alternative to diagnostic chest CT. RADIATION DOSE: CT dose index volume (CTDIvol) = 1.68 mGy COMPARISON: 03/21/2023 FINDINGS: SMOKING RELATED LUNG DISEASE: Emphysema LUNG NODULES: No suspicious nodules were seen. Several small noncalcified nodules all measure less than 5 mm. Some vague peripheral ground-glass opacity in the right costophrenic sulcus region is difficult to measure. This is not obviously changed. CORONARY ARTERY CALCIFICATION: Minimal OTHER: There is no adenopathy. The upper abdomen is unremarkable. No bone lesions were seen. IMPRESSION: Emphysema. Minimal coronary artery calcification Lung-RADS category 2S: Benign appearance or behavior. Finding other than a pulmonary nodule which is potentially clinically significant. Recommendation: Low dose Screening CT of chest in 12 months. THIS IS AN ELECTRONICALLY VERIFIED FINAL REPORT 04/25/2024 9:40 AM - Electronically signed by Andrez Fierro M.D. FEDERICO: FEDERICO Report ID: [id number] Reading Location: [id number] Procedure Note Heriberto Fierro MD - 04/25/2024 EXAM DESCRIPTION: CT LUNG CANCER SCREENING REASON FOR STUDY: Screening CT of the chest in a current smoker with a20 pack year smoking history. Additional history: None. TECHNIQUE: Low dose CT scan of the chest was performed without intravenous contrast using helical scanning technique. The exam extends from the lung apices through the lung bases. Automatic exposure control was used as adose optimization technique. NOTE: This study was performed for the specific purposes of lung cancer screening and is not an alternative to diagnostic chest CT. RADIATION DOSE: CT dose index volume (CTDIvol) = 1.68 mGy COMPARISON: 03/21/2023 FINDINGS: SMOKING RELATED LUNG DISEASE: Emphysema LUNG NODULES: No suspicious nodules were seen. Several smallnoncalcified nodules all measure less than 5 mm. Some vague peripheral ground-glass opacity in the right costophrenic sulcus region is difficult to measure.This is not obviously changed. CORONARY ARTERY CALCIFICATION: Minimal OTHER: There is no adenopathy. The upper abdomen is unremarkable. [place] lesions were seen. IMPRESSION: Emphysema. Minimal coronary artery calcification Lung-RADS category 2S: Benign appearance or behavior. Finding other thana pulmonary nodule which is potentially clinically significant. Recommendation: Low dose Screening CT of chest in 12 months. THIS IS AN ELECTRONICALLY VERIFIED FINAL REPORT 04/25/2024 9:40 AM - Electronically signed by Andrez Fierro M.D. FEDERICO: FEDERICO Report ID: [id number] Reading Location: [place] [address] Minerva Montelongo MD IM CT PROCEDURES Final Re sult * Stool DNA - Cologuard (11/13/2023 9:00 AM CDT) Stool DNA - Cologuard Negative Negative [facility] (CLIA #:[id number]) Comment: NEGATIVE TEST RESULT. A negative Cologuard result indicates a low likelihood that a colorectal cancer (CRC) or advanced adenoma (adenomatous polyps with more advanced pre-malignant features) is present. The chance that a person with a negative Cologuard test has a colorectal cancer is less than 1 in 1500 (negative predictive value >99.9%) or has an advanced adenoma is less than 5.3% (negative predictive value 94.7%). These data are based on a prospective cross-sectional study of 10,000 individuals at average risk for colorectal cancer who were screened with both Cologuard and colonoscopy. (Amapro Frank al, N Engl J Med 2014;370(14):5743-9851) The normal value (reference range) for this assay is negative. COLOGUARD RE-SCREENING RECOMMENDATION: Periodic colorectal cancer screening is an important part of preventive healthcare for asymptomatic individuals at average risk for colorectal cancer. Following a negative Cologuard result, the [place] Cancer Society and U.S. Multi-Society Task Force screening guidelines recommend a Cologuard re-screening interval of 3 years. References: [place] [employer] Guideline for Colorectal Cancer Screening: https://www.cancer.org/cancer/rfiir-mlwloo-fyjnkm/xqexkphyi-freorgmio-bmyqepn/ac s-rec ommendations.html.; Richard DK, Gerald CR, Pat DesaiK, Colorectal Cancer Screening: Recommendations for Physicians and Patients from the U.S. Multi-Society Task Force on Colorectal Cancer Screening , Am J Gastroenterology 2017; 112:6163-0334. TEST DESCRIPTION: Composite algorithmic analysis of stool DNA-biomarkers with hemoglobin immunoassay. Quantitative values of individual biomarkers are not reportable and are not associated with individual biomarker result reference ranges. Cologuard is intended for colorectal cancer screening of adults of either sex, 45 years or older, who are at average-risk for colorectal cancer (CRC). Cologuard has been approved for use by the U.S. FDA. The performance of Cologuard was established in a cross sectional study of average-risk adults aged 50-84. Cologuard performance in patients ages 45 to 49 years was estimated by sub-group analysis of near-age groups. Colonoscopies performed for a positive result may find as the most clinically significant lesion: colorectal cancer [4.0%], advanced adenoma (including sessile serrated polyps greater than or equal to 1cm diameter) [20%] or non- advanced adenoma [31%]; or no colorectal neoplasia [45%]. These estimates are derived from a prospective cross-sectional screening study of 10,000 individuals at average risk for colorectal cancer who were screened with both Cologuard and colonoscopy. (Amparo Frank al, N Engl J Med 2014;370(14):7734-7412.) Cologuard may produce a false negative or false positive result (no colorectal cancer or precancerous polyp present at colonoscopy follow up). A negative Cologuard test result does not guarantee the absence of CRC or advanced adenoma (pre-cancer). The current Cologuard screening interval is every 3 years. ([place] [employer] Society and U.S. Multi-Society Task Force). Cologuard performance data in a 10,000 patient pivotal study using colonoscopy as the reference method can be accessed at the following location: www.[employer]/results. Additional description of the Cologuard test process, warnings and precautions can be found at www.[employer].com. Stool 11/13/2023 9:00 AM CDT 11/14/2023 9:34 AM CDT us Minerva Montelongo MD LAB BODY FLUIDS AND STOOLS ORDERABLES Final Result [id number] (CLIA #:[id number]) [place] [address] * Dexa Axial Skeleton Bone Density 1 or 2 Site (03/21/2023 1:14 PM CDT) Anatomical Region Laterality Modality Body N/A Other 03/22/2023 8:34 AM CDT Narrative 03/22/2023 8:35 AM CDT EXAM DESCRIPTION: DEXA AXIAL SKELETON BONE DENSITY 1 OR MORE SITES REASON FOR STUDY: 63 y/o year old F with given history of: Postmenopausal status. History of prior fracture and smoking. 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 FINDINGS: AP LUMBAR SPINE L1-L3: Total BMD is 1.004 g/cm2 T-score is -0.1 LEFT HIP: Total BMD is 0.734 g/cm2 T-score is -1.7 Femoral neck BMD is 0.637 g/cm2 T-score is -1.9 FRAX: 10 year risk for a major osteoporotic fracture is 17 %, 10 year risk for a hip fracture is 3.7 % IMPRESSION: Low bone mass REFERENCE: Bone mineral density: Normal (T-score above or = -1.0) Low bone mass (T-score between -1.0 and -2.5) replaces the previously used term osteopenia Osteoporosis (T-score = or below -2.5) Medical evaluation for secondary causes of low bone mineral density may be appropriate. FRAX is a World Health Organization validated fracture risk assessment tool that calculates a person's 10 year probability of a major osteoporosis related fracture and hip fracture. According to the National Osteoporosis Foundation guidelines, postmenopausal women and men age 50 or older with low bone mass and a 10 year probability of a major osteoporosis related fracture = or greater than 20% or a 10 year probability of a hip fracture = or greater than 3% should be considered for treatment. For further information, including treatment recommendations, please refer to the 2019 ISCD Official Positions (http://www.iscd.org) and the NOF's Clinician's Guide to Prevention and Treatment of Osteoporosis (http://www.nof.org/professionals/clinical-guidelines) THIS IS AN ELECTRONICALLY VERIFIED FINAL REPORT 03/22/2023 8:35 AM - Electronically signed by Olivia Ferrari M.D. TW: TW Report ID: [id number] Reading Location: [id number] Procedure Note Olivia Ferrari MD - 03/22/2023 EXAM DESCRIPTION: DEXA AXIAL SKELETON BONE DENSITY 1 OR MORE SITES REASON FOR STUDY: 63 y/o year old F with given history of:Postmenopausal status. History of prior fracture and smoking. 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 FINDINGS: AP LUMBAR SPINE L1-L3: Total BMD is 1.004 g/cm2 T-score is -0.1 LEFT HIP: Total BMD is 0.734 g/cm2 T-score is -1.7 Femoral neck BMD is 0.637 g/cm2 T-score is -1.9 FRAX: 10 year risk for a major osteoporotic fracture is 17 %, 10 year risk for ahip fracture is 3.7 % IMPRESSION: Low bone mass REFERENCE: Bone mineral density: Normal (T-score above or = -1.0) Low bone mass (T-score between -1.0 and -2.5) replaces thepreviously used term osteopenia Osteoporosis (T-score = or below -2.5) Medical evaluation for secondary causes of low bone mineral density may be appropriate. FRAX is a World Health Organization validated fracture risk assessmenttool that calculates a person's 10 year probability of a major osteoporosisrelated fracture and hip fracture. According to the National OsteoporosisFoundation guidelines, postmenopausal women and men age 50 or older with low bonemass and a 10 year probability of a major osteoporosis related fracture = or greater than 20% or a 10 year probability of a hip fracture = or greaterthan 3% should be considered for treatment. For further information, including treatment recommendations, please referto the 2019 ISCD Official Positions (http://www.iscd.org) and the NOF's Clinician's Guide to Prevention and Treatment of Osteoporosis (http://www.nof.org/professionals/clinical-guidelines) THIS IS AN ELECTRONICALLY VERIFIED FINAL REPORT 03/22/2023 8:35 AM - Electronically signed by Olivia Ferrari M.D. TW: ELTON Report ID: [id number] Reading Location: [place] [address] us Minerva Montelongo MD IMG DXA PROCEDURES Final R esult * Hepatitis C antibody (06/02/2016 2:51 PM EXPANSION JOINT FINISHER) [facility] SIGNAL TO CUT-OFF 0.01 <1.00 [facility]OR[facility] RESULTS Comment: REPORT COMMENT: FASTING:YES [facility] [address] [place] [address] Director: MICHELLE BREWSTER DO,MPH Hep C Ab NON-REACT MELISSA NON-REACT MELISSA [facility]ISTORICAL RESULTS 06/02/2016 2:51 PM EXPANSION JOINT FINISHER us Minerva Montelongo MD LAB MICROBIOLOGY - GENERAL ORDERABLES Final Result [facility]OR[facility] RESULTS from Last 3 Months or Most Recently Relevant to Health Maintenance Insurance [facility] Member Subscriber Plan / Payer (Ef fective 2018-Present) Name:Keena Morales Venkata Relation to Subscriber:Self Name:Keena Morales Venkata Payer ID:[id number] (NA) Type:Not on file Address: [address] [id number] AETNA MEDICARE AETNA MEDICARE Advance Directives For more information, please contact: [phone] Documents on File Type Date Recorded Patient Escrow 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 Expl anation ADVANCE DIRECTIVE 05/01/2024 POWER OF A TTORNEY-MEDICAL ADVANCE DIRECTIVE 01/13/2020 4:20 PM ADVANCE DIRECTIVE 01/13/2020 POWER OF A TTORNEY-MEDICAL ADVANCE DIRECTIVE 02/02/2010 POWER OF A TTORNEY-MEDICAL Care Teams Computer Programmer Chief Relationship Specialty Start Date End Date Minerva Montelongo MD PCP - General 08/26/16 Robby Borges DO [address] [place] [address] Orthopedic Surgery 02/14/17 Heriberto Carreon DO [address] [place] [address] Psychiatry 02/14/17 Yesenia Duncan DO [address] [place] [address] Referring Physician Ophthalmology 08/21/18 Omid Amin MD [address] [place] [address] Referring Physician Orthopedic Surgery 08/11/20 John Escoto DO [address] [facility] [address] [place] [address] Orthopedic Surgery 07/26/24 Nish Palmer MD [address] [place] [address] Orthopedic Surgery 11/04/24 Jose Harding MD [address] [place] [address] Anesthesiology 11/04/24
--- OUTSIDE RECORDS SUMMARY | 2025-01-30 17:19 | XMS_ITS | Encounter Summary ---
Author Organization [facility] Address [address] [facility] [place] [address] Care Team Providers Care Wardrobe Technician Name Role Phone Renay Trejo MD Primary Care Provider [phone] Cecilia Hall RN Unavailable Reason for Visit * Reason Onset Date Comments Future Appointment 01/31/2020 Lower Extremity Problem 01/31/2020 Encounter Details Date Type Department Care Team (Late st Contact Info) Description 01/31/2020 Telephone [facility] Orthopedic Surgery [address] [place], [place] [id number] Omid Amin MD [address] [facility] [address] [place] [address] Future Appointment; Lower Extremity Problem Social History Tobacco Use Types Packs/Day Years Used Date Smoking Tobacco: Former Cigarettes Q uit: 11/10/2018 Smokeless Tobacco: Never Comments:3-5 cig/day Alcohol Use Standard Drinks/Week Comments No 0 (1 standard drink = 0.6 oz pur e alcohol) Comments No Sex and Gender Information Value Date Recorded Sex Assigned at Not on file Legal Sex 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 Answer Date of Assessment Author No 09/02/2015 8:31 AM CDT Alfredo Liz RN * Is person blind or have serious difficulty seeing? Answer Date of Assessment Author No 09/02/2015 8:31 AM CDT Alfredo Liz RN * Does person have serious difficulty walking/climbing stairs? Answer Date of Assessment Author No 09/02/2015 8:31 AM CDT Alfredo Liz RN * Does person have difficulty dressing/bathing? Answer Date of Assessment Author No 09/02/2015 8:31 AM CDT Alfredo Liz RN * Does person have difficulty doing errands alone? Answer Date of Assessment Author No 09/02/2015 8:31 AM CDT Alfredo Liz RN documented as of this encounter Mental Status * Does person have difficulty concentrating/remembering/making decisions? Answer Entry Date Author No 09/02/2015 8:31 AM ALTAGRACIAT Alfredo Liz RN documented in this encounter Miscellaneous Notes * Telephone Encounter - Jerod Stock - 01/31/2020 9:55 AM CDT Pt would like to know if she can be seen any sooner than 10.5.[address] she is in pain and hasa labral hip tear PT CB# [phone] documented in this encounter Plan of Treatment Upcoming Encounters Date Type Department Care Team (Late st Contact Info) Description 02/07/2025 11:00 AM CDT Office Visit [facility] [address] [place] [address] Minerva Krishnamurthy, CLEANING PROFESSIONAL-PROCESS WORKER [address] [place] [address] 02/20/2025 9:45 AM CDT Office Visit [facility] - Orthopedic Surgery [address] [place] [address] Nish Palmer MD [address] [place] [address] documented as of this encounter Visit Diagnoses Not on filedocumented in this encounter Care Teams Wardrobe Technician Relationship Specialty Start Date End Date Renay Trejo MD [address] [place] [address] PCP - General Internal Medicine 10/03/14 Cecilia Hall, RN Acrylic Fabricator 09/03/15 documented as of this encounter
--- OUTSIDE RECORDS SUMMARY | 2025-01-30 17:19 | XMS_ITS | Encounter Summary ---
Author Organization [facility] Address [address] [place] [address] Phone Care Team Providers Care Train Conductor Name Role Phone Minerva Trejo MD Primary Care Provider + [phone] Robby Borges DO Unavailable Heriberto Carreon DO Unavailable [phone] Zayda Fields MD Unavailable [phone] Robby Mays MD Unavailable [phone] Yesenia Duncan DO Unavailable [phone] Omid Amin MD Unavailable John Escoto DO Unavailable + Nish Palmer MD Unavailable [phone] Jose Harding MD Unavailable Reason for Referral * Surgical (Routine) - Closed Specialty Diagnoses / Procedures Referred By Contac t Referred To Contact Orthopedic Surgery Diagnoses Localized osteoarthrosis not specified whether primary or secondary, unspecified site Minerva Trejo MD Phone: tel: fax: Robby Borges DO Phone: tel: fax: Referral ID Status Reason Start Date Expiration Date V isits Requested Visits Authorized [id number] Closed Specialty Services Required 12/09/2016 12/09/2017 12 12 Encounter Details Date Type Department Care Team (Late st Contact Info) Description 12/09/2016 Orders Only [facility] [address] [place] [address] Minerva Trejo MD [address] [place] [address] Localized osteoarthrosis not specified whether primary or secondary, unspecified site (Primary Dx) Social History Tobacco Use Types Packs/Day Years Used Date Smoking Tobacco: Some Days Alcohol Use Standard Drinks/Week Comments No 0 (1 standard drink = 0.6 oz pur e alcohol) Comments Unknown Sex and Gender Information Value Date Recorded Sex Assigned at Not on file Legal Sex Female 6:03 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 Gender Identity Not on file Sexual Orientation Not on file documented as of this encounter Plan of Treatment Scheduled Referrals Name Type Priority Associated Diagnoses Orde r Schedule Ambulatory referral to Orthopedic Surgery Outpatient Referral Routine Localized osteoarthrosis not specified whether primary or secondary, unspecified site Ordered: 12/09/2016 documented as of this encounter Visit Diagnoses Diagnosis Localized osteoarthrosis not specified whether primary or secondary, unspecified site- Primary documented in this encounter Care Teams Train Conductor Relationship Specialty Start Date End Date Minerva Trejo MD PCP - General 08/26/16 Robby Borges DO [address] [place] [address] Orthopedic Surgery 02/14/17 Heriberto Carreon DO [address] [place] [address] Psychiatry 02/14/17 Zayda Fields MD [address] [place] [address] Referring Physician Family Medicine 08/15/17 08/20/18 Robby Mays MD [address] [facility] [address] [facility] [place] [address] Consulting Physician Gastroenterology 08/15/17 08/20/18 Yesenia Duncan DO [address] [facility] [address] [facility] [place] [address] Referring Physician Ophthalmology 08/21/18 Omid Amin MD [address] [facility] [address] [facility] [place] [address] Referring Physician Orthopedic Surgery 08/11/20 John Escoto DO [address] [facility] [address] [address] Orthopedic Surgery 07/26/24 Nish Palmer MD [address] [place] [address] Orthopedic Surgery 11/04/24 Jose Harding MD [address] [place] [address] Anesthesiology 11/04/24 documented as of this encounter
[2025-01-30 17:29] LABS: NT Pro B Type Natriuretic Pept 360 pg/mL (19.9-100); Troponin I < 0.012 ng/mL (0.000-0.034)
--- NOTE | 2025-01-30 17:33 | ED_ITS ---
HPI - Chest Pain General Chief Complaint: Chest Pain Stated Complaint: chest pain Time Seen by Provider: 01/30/25 17:01 History of Present Illness HPI narrative: Patient is a 65 year old female who presents to the ER with lower extremity edema, coughing, and shortness of breath. She reports she recently had a cervical and thoracic fusion (C2-T2). Pt reports she has had lower extremity edema in the past, but she reports it has worsened the past couple of days. She denies any recent fevers, abdominal pain, or urinary symptoms. Patient endorses a history of COPD and high blood pressure. Related Data Allergies Allergy/AdvReac Type Severity Reaction Status Date / Time Egg Derived Allergy Severe Anaphylaxis Verified 01/30/25 20:04 propofol Allergy Unknown Anaphylactic Verified 01/30/25 20:04 Shock latex AdvReac Unknown Hives / Verified 01/30/25 20:04 Red Face BEE,WASP STINGS- Allergy Severe LOCAL Uncoded 01/30/25 20:04 SWELLING REACTION Review of Systems 2 Review of Systems: All systems reviewed & are unremarkable except as noted in HPI and below Exam 2 Narrative: GENERAL: Well appearing, well-nourished, non-toxic, in no acute distress. HEAD: Normocephalic, atraumatic. NECK: Supple. No adenopathy, no masses. Pt has cervical collar on at time of examination. RESPIRATORY: Airway patent, respirations nonlabored. Clear to auscultation bilaterally, no rales, rhonchi, wheezing. CARDIOVASCULAR: Regular rate and rhythm without murmurs, rubs, or gallops. P eripheral pulses 2+ and equal bilaterally. 3+ pitting edema bilaterally ABDOMINAL: Soft, nontender, nondistended, no hepatosplenomegaly. Normoactive BS. MUSCULOSKELETAL: Moves all extremities. Strength/ROM intact without gross deformities. SKIN: Warm, dry, normal color. No rashes. NEURO: A&O X3. Speech clear. Cranial nerves II-XII intact. No ataxic movements. PSYCHIATRIC: Appropriate mood and affect. Normal interaction. Course Vital Signs Vital signs: Vital Signs Temperature 36.4 C 01/30/25 16:36 Pulse Rate 80 01/30/25 16:36 Respiratory Rate 17 01/30/25 16:36 Blood Pressure 123/56 L 01/30/25 16:36 Pulse Oximetry 98 01/30/25 16:36 Oxygen Delivery Room Air 01/30/25 16:36 Temperature 36.4 C 01/30/25 16:36 Pulse Rate 71 01/30/25 18:09 Respiratory Rate 13 01/30/25 18:09 Blood Pressure 101/54 L 01/30/25 18:09 Pulse Oximetry 98 01/30/25 18:09 Oxygen Delivery Room Air 01/30/25 16:48 MDM - Chest Pain MDM Narrative Medical decision making narrative: Patient is a 65 year old female who presents to the ER with lower extremity edema, coughing, and shortness of breath. She reports she recently had a cervical and thoracic fusion (C2-T2). Pt reports she has had lower extremity edema in the past, but she reports it has worsened the past couple of days. She denies any recent fevers, abdominal pain, or urinary symptoms. Patient endorses a history of COPD and high blood pressure. Labs Ordered: CBC, CMP, D-dimer, troponin, PTT, INR, lipase, proBNP, COVID/flu/RSV Imaging Ordered: Chest x-ray, CTA chest PE Medications Ordered: Robaxin p.o. (home medication), Bee p.o. (home medication), Lasix 60mg PO x 1 Results: Pt's x-ray indicates There is subsegmental left lower lobe atelectasis. Heart size normal. No focal pneumonia, edema, significant effusion or pneumothorax. There are surgical changes at the cervicothoracic junction consistent with fusion. Pt's CT scan indicates Study is technically adequate without evidence for pulmonary embolism. No significant pleural or pericardial effusion. No thoracic lymphadenopathy. There is thickening of the esophagus, consistent with esophagitis. There is left lower lobe atelectasis. No focal pneumonia, edema or effusion. No pneumothorax. No endobronchial lesions. No acute osseous abnormality. Mild thoracic spondylosis. Diagnosis: bilateral lower extremity edema, COPD exacerbation (no oxygen requirement) Patient Education/Shared MDM: Results of lab work and imaging shared with patient. She was able to pull up blood work results from an outside hospital 1 week ago for [facility]. Those results were similar to today's results (1 week ago-white blood cell count 11.5, RBC 3.14, BUN 23, creatinine 1.00, hemoglobin 9.2, GFR 62). She has been taking muscle relaxants and pain medication at home every 6 hours. Patient reports she is due for both at this time. Upon re-examination pt endorses improvement of symptoms following medication administration. Patient strongly advised to follow-up with her PCP and neurosurgeon at [facility] as soon as possible. She will be given 1 dose of Lasix here in the ER to help reduce her lower extremity swelling. Patient should follow-up with her primary care provider to determine whether not changes are necessary to her daily regimen. She will not be discharged home with any new prescriptions, but a prescription will be sent through for compression socks. Patient was strongly advised to keep her bilateral extremities elevated when she was lying down, but continue to use her incentive spirometer and walk around frequently. Patient ambulated around the emergency department without any shortness of breath or distress. She reports she is ready to go home and will follow-up as planned. Patient should take all of her regularly scheduled medications as prescribed. Strict return precautions provided. Patient verbalized understanding and is in agreement with plan. Vital signs stable at time of discharge. All questions answered. Differential Diagnosis Differential diagnosis: Likely atypical chest pain, st elevation myocardial infarction and other (Mild COPD exacerbation, lower extremity swelling) Lab Data Attestation: I reviewed the patient's lab results. 01/30/25 16:55 01/30/25 16:55 Labs: Lab Results 01/30/25 01/30/25 01/30/25 Range/Units 16:55 18:30 20:09 WBC 13.0 H (4.5-10.0) K/mm3 RBC 3.08 L (4.2-5.4) M/mm3 Hgb 8.9 L (12.0-15.0) g/dL Hct 28.6 L (37.0-47.0) % MCV 92.9 (80-100) fl MCH 28.9 (26-34) pg MCHC 31.1 L (32-36) g/dl RDW 13.8 (11.5-14.5) % Plt Count 388 H (150-375) k/mm3 MPV 8.5 (7.4-10.4) fl Immature Gran % (Auto) Not Reportable Neut % (Auto) Not Reportable Lymph % (Auto) Not Reportable [place] % (Auto) Not Reportable Eos % (Auto) Not Reportable Baso % (Auto) Not Reportable Lymph # (Auto) Not Reportable [place] # (Auto) Not Reportable Eos # (Auto) Not Reportable Baso # (Auto) Not Reportable Abs Immat Gran (auto) Not Reportable Absolute Neuts (auto) Not Reportable Absolute Nucleated RBC Not Reportable Total Counted 100 Neutrophils % (Manual) 77 H (46-73) % Band Neutrophils % 2 (0-6) % Lymphocytes % (Manual) 7 L (18-44) % Monocytes % (Manual) 7 (3-9) % Eosinophils % (Manual) 3 (0-4) % Metamyelocytes % 2 % Myelocytes % 2 % Nucleated RBC % Not Reportable Abs Neuts (Manual) 10.27 H (1.3-6.7) K/mm3 Abs Lymphs (Manual) 0.91 L (1.1-4.5) K/mm3 Abs Monocytes (Manual) 0.91 H (0.1-0.90) K/mm3 Absolute Eos (Manual) 0.39 (0.02-0.50) K/mm3 Platelet Estimate Slightly increased (Adequate) Schistocytes None seen PT 13.3 (11.1-14.7) Seconds INR 1.0 APTT 34.7 (22.3-36.8) Seconds D-Dimer 2.27 H (<0.48) ug/mL Sodium 137 (137-145) mmol/L Potassium 4.0 (3.4-5.0) mmol/L Chloride 101 (98-107) mmol/L Carbon Dioxide 27 (22-30) mmol/L Anion Gap 9 (4-12) mmol/L BUN 27 H (7-17) mg/dL Creatinine 1.12 H (0.7-1.0) mg/dL Estim Creat Clear Calc 42 ml/min Estimated GFR 49 L (59 - ) Glucose 100 (65-110) mg/dL Calcium 9.2 (8.4-10.2) mg/dL Total Bilirubin 0.2 (0.2-1.3) mg/dL AST 24 (14-36) U/L ALT 18 (6-35) U/L Alkaline Phosphatase 111 (38-126) U/L Troponin I < 0.012 < 0.012 (0.000-0.034) ng/mL NT-Pro-B Natriuret Pep 360 H (19.9-100) pg/mL Total Protein 7.1 (6.3-8.2) g/dL Albumin 3.9 (3.5-5.1) g/dL Lipase 38 (23-300) U/L Influenza A (RT-PCR) Negative (Negative) Influenza B (RT-PCR) Negative (Negative) RSV (RT-PCR) Negative (Negative) SARS-CoV-2 RNA (RT-PCR) Negative (Negative) Imaging Data Attestation: I personally reviewed and interpreted this imaging study as follows: Radiologist's impression: Impressions Chest X-Ray 01/30/25 17:25 Impression: 1: Left lower lobe atelectasis. Chest CTA 01/30/25 18:32 IMPRESSION: 1. Left lower lobe atelectasis. Discharge Plan Discharge Clinical Impression: Bilateral edema of lower extremity, Chronic obstructive pulmonary disease with (acute) exacerbation, History of fusion of cervical spine Patient Disposition: Home Condition: Stable Instructions: Antibiotic Form, COPD (Chronic Obstructive Pulmonary Disease) (ED), Leg Edema (ED) Additional Instructions: Please return to the ER with any worsening symptoms. Follow-up with primary care provider and your neurosurgeon as soon as possible. Take all medications as prescribed, including regularly scheduled medications. Please continue to use your incentive spirometer. Your CT scan did not indicate pneumonia today. Please wear compression stockings and keep your feet elevated when you are laying down. Patient Language: Cambodian Prescriptions: New (DME) LifestyleComfort Socks Large Misc See Rx Instructions .Route Qty: 2 0RF Rx Instructions: As directed Follow-up/Referrals: Maya,MD Minerva [Primary Care Provider] Time of Disposition: 21:24
[2025-01-30 19:13] LABS: Influenza A QL RT-PCR Negative (Negative); Influenza B QL RT-PCR Negative (Negative); RSV RNA, RT-PCR Negative (Negative); SARS-CoV-2 RNA PCR Negative (Negative)
[2025-01-30] MEDS: HYDROcodone/acetaminophen (*CRX) 5-325 MG TABLET 1 TAB PO (20:05)
[2025-01-30] MEDS: FUROSEMIDE TABLET 20 MG, FUROSEMIDE TABLET 40 MG 60 MG PO (20:12)
[2025-01-30 20:38] LABS: Troponin I < 0.012 ng/mL (0.000-0.034)
--- OUTSIDE RECORDS SUMMARY | 2025-03-28 19:00 | XMS_ITS | Clinical Summary ---
Author Organization Unknown Care Team Providers Care Director Print Name Role Phone REGINALDROBERT Unavailable Unavailable GOVIND PHYSICAL THERAPIST, FAUSTINA Unavailable Unavailable MARY ROUTE DELIVERY DRIVER, CLAUDETTE Barfield ailable Unavailable Payers Payer Name Policy Type Policy Number Effective Date Expira tion Date [employer] MEDICARE ADVANTAGE - EPISODIC SELF PAY - SECONDARY (CO-PAY)/DEDUCTIBLE Problems Condition Name Condition Details Condition Category Status Onset Date Resolution Date Last Treatment Date Treating Clinician Comments ENCOUNTER FOR OTHER ORTHOPEDIC AFTERCARE Active 01-20 00:00: 00 OTHER SPONDYLOSIS WITH MYELOPATHY, CERVICAL REGION Active 05-29 00:00: 00 SPONDYLOLIST HESIS, CERVICAL REGION Active 05-29 00:00: 00 ARTHRODESIS STATUS Active 05-29 00:00: 00 PURE HYPERCHOLEST EROLEMIA, UNSPECIFIED Active 05-29 00:00: 00 BIPOLAR DISORDER, UNSPECIFIED Active 05-29 00:00: 00 ANXIETY DISORDER, UNSPECIFIED Active 05-29 00:00: 00 UNSPECIFIED GLAUCOMA Active 05-29 00:00: 00 ATHSCL HEART DISEASE OF [place] CORONARY ARTERY W/O ANG PCTRS Active 05-29 00:00: 00 ESSENTIAL (PRIMARY) HYPERTENSION Active 05-29 00:00: 00 OTHER SPECIFIED CHRONIC OBSTRUCTIVE PULMONARY DISEASE Active 05-29 00:00: 00 SACROILIITIS , NOT ELSEWHERE CLASSIFIED Active 05-29 00:00: 00 ACQUIRED ABSENCE OF OTHER SPECIFIED PARTS OF DIGESTIVE TRACT Active - 00:00: 00 ACQUIRED ABSENCE OF BOTH CERVIX AND UTERUS Active 05-29 00:00: 00 ACQUIRED ABSENCE OF OVARIES, UNILATERAL Active 05-29 00:00: 00 PRESENCE OF LEFT ARTIFICIAL KNEE JOINT Active 05-29 00:00: 00 PERSONAL HISTORY OF NICOTINE DEPENDENCE Active 05-29 00:00: 00 HISTORY OF FALLING Active 05-29 00:00: 00 Allergies, Adverse Reactions, Alerts Allergy Name Allergy Type Status Severity Reaction(s) Onset Date Inactive Date Treating Clinician Comments ASPIRIN Propensity to adverse reactions Active 01-22 12:46: 47 EGG PHOSPHOLIPID S Propensity to adverse reactions Active 01-22 12:46: 52 PROPOXYPHENE Propensity to adverse reactions Active 01-22 12:47: 07 MEASLES VACCINE,LIVE Propensity to adverse reactions Active 01-22 12:47: 55 PNEUMOCOCCAL VACCINE Propensity to adverse reactions Active 01-22 12:48: 05 FLU SHOT Propensity to adverse reactions Active 01-22 12:48: 14 PROPOFOL Propensity to adverse reactions Active 01-22 12:48: 21 BUPRENORPHIN E Propensity to adverse reactions Active 01-22 12:48: 28 POULTRY Propensity to adverse reactions Active 01-22 12:48: 38 ALBUMIN Propensity to adverse reactions Active 01-22 12:49: 04 Immunizations Ordered Immunization Name Filled Immunization Name Date Status Comments Refusal Reason PNEUMOCOCCAL (PPV), PPV 2023-02-01 00:00:00 Vital Signs Vital Name Observation Time Observation Value Commen ts Temperature 2025-01-29 11:36:00.000 98.2 [degF] BMI (%) 2025-01-29 11:36:00.000 31 kg/m2 Height 2025-01-29 11:36:00.000 62 [in_us] Pulse 2025-01-29 11:36:00.000 70 /min O2 Saturation (%) 2025-01-29 11:36:00.000 96 % Respirations 2025-01-29 11:36:00.000 18 /min Weight (lbs) 2025-01-29 11:36:00.000 170 [lb_av] Systolic Blood Pressure 2025-01-29 11:36:00.000 106 mm [Hg] Diastolic Blood Pressure 2025-01-29 11:36:00.000 54 mm [Hg] Plan of Treatment Planned Activity Planned Date Details Comments Future Scheduled Test PHYSICAL T HERAPIST TO ASSESS AND PROVIDE THERAPEUTIC TREATMENTS ADDRESS CLOSED INCISION/SUTURE LINE AND MAY PERFORM WOUND CARE TO POSTERIOR NECK INCISION [code = PHYSICAL THERAPIST TO ASSESS AND PROVIDE THERAPEUTIC TREATMENTS ADDRESS CLOSED INCISION/SUTURE LINE AND MAY PERFORM WOUND CARE TO POSTERIOR NECK INCISION] Future Scheduled Test PATIENT RE QUIRED A DELAY IN THE HOME HEALTH START OF CARE/RESUMPTION OF CARE. THE DELAY(S) REQUIRED A NOTIFICATION AND APPROVAL BY THE PHYSICIAN OR ALLOWABLE PRACTITIONER WHICH WAS DONE ON 01/24/2025, 01/28/2025 THE NEW PHYSICIAN ORDERED START OF CARE/RESUMPTION OF CARE DATE(S) 01/28/2025, 01/29/2025 PATIENT S REASON(S) TO DELAY HOME HEALTH INCLUDED PATIENT REQUEST., PATIENT REQUEST [code = PATIENT REQUIRED A DELAY IN THE HOME HEALTH START OF CARE/RESUMPTION OF CARE. THE DELAY(S) REQUIRED A NOTIFICATION AND APPROVAL BY THE PHYSICIAN OR ALLOWABLE PRACTITIONER WHICH WAS DONE ON 01/24/2025, 01/28/2025 THE NEW PHYSICIAN ORDERED START OF CARE/RESUMPTION OF CARE DATE(S) 01/28/2025, 01/29/2025 PATIENT S REASON(S) TO DELAY HOME HEALTH INCLUDED PATIENT REQUEST., PATIENT REQUEST] Future Scheduled Test PHYSICAL T HERAPIST TO DEVELOP AND INSTRUCT ON HOME EXERCISE PROGRAM TO INCLUDE THERAPEUTIC EXERCISES DESIGNED TO RESTORE FUNCTIONAL RANGE OF MOTION, STRENGTH, BALANCE, NEUROMUSCULAR AND SENSORIMOTOR FUNCTION. [code = PHYSICAL THERAPIST TO DEVELOP AND INSTRUCT ON HOME EXERCISE PROGRAM TO INCLUDE THERAPEUTIC EXERCISES DESIGNED TO RESTORE FUNCTIONAL RANGE OF MOTION, STRENGTH, BALANCE, NEUROMUSCULAR AND SENSORIMOTOR FUNCTION.] Future Scheduled Test PHYSICAL T HERAPIST WILL INSTRUCT ON FUNCTIONAL TRANSFERS, BED MOBILITY AND FALL RISK REDUCTION STRATEGIES INCLUDING USE OF ADAPTIVE EQUIPMENT AND EDUCATION FOR HOME MODIFICATIONS TO MAXIMIZE SAFETY, IMPROVE FUNCTION AND DECREASE FALL RISK. [code = PHYSICAL THERAPIST WILL INSTRUCT ON FUNCTIONAL TRANSFERS, BED MOBILITY AND FALL RISK REDUCTION STRATEGIES INCLUDING USE OF ADAPTIVE EQUIPMENT AND EDUCATION FOR HOME MODIFICATIONS TO MAXIMIZE SAFETY, IMPROVE FUNCTION AND DECREASE FALL RISK.] Future Scheduled Test PHYSICAL T HERAPIST TO INSTRUCT ON GAIT TRAINING, BALANCE TRAINING, AND FALL RISK REDUCTION STRATEGIES INCLUDING USE OF ADAPTIVE EQUIPMENT AND EDUCATION FOR HOME MODIFICATIONS TO MAXIMIZE SAFETY, IMPROVE FUNCTION, AND DECREASED FALL RISK. [code = PHYSICAL THERAPIST TO INSTRUCT ON GAIT TRAINING, BALANCE TRAINING, AND FALL RISK REDUCTION STRATEGIES INCLUDING USE OF ADAPTIVE EQUIPMENT AND EDUCATION FOR HOME MODIFICATIONS TO MAXIMIZE SAFETY, IMPROVE FUNCTION, AND DECREASED FALL RISK.] Future Scheduled Test PHYSICAL T HERAPIST TO PROVIDE SKILLED TEACHING FOR POST-OP TYPE SURGERY TO INCLUDE PRECAUTIONS, ACTIVITIES PERMITTED OR RESTRICTED, SELF-MANAGEMENT STRATEGIES, AND WARNING SIGNS TO REPORT. [code = PHYSICAL THERAPIST TO PROVIDE SKILLED TEACHING FOR POST-OP TYPE SURGERY TO INCLUDE PRECAUTIONS, ACTIVITIES PERMITTED OR RESTRICTED, SELF-MANAGEMENT STRATEGIES, AND WARNING SIGNS TO REPORT.] Future Scheduled Test THE CER TIFYING PHYSICIAN, ASSOCIATED PHYSICIAN, NPP OR PA WITHIN THE SAME GROUP MAY APPROVE AND SIGN THE ORDER (ON ANY PAGE) ATTESTING THAT THE COMPREHENSIVE OUTCOME ASSESSMENTS, EVALUATIONS, AND HOME HEALTH CERTIFICATION PLANS SUPPORT HOMEBOUND STATUS. HOME HEALTH WEB PORTAL DOCUMENTATION ACCESSED BY THE PHYSICIAN MUST BE INCORPORATED INTO THE MEDICAL RECORD TO CORROBORATE THE PHYSICIAN, NPP, OR PA'S F2F ENCOUNTER TO SUPPORT ELIGIBILITY FOR HOME HEALTH SERVICES. MAY ACCEPT ORDERS FROM THE FOLLOWING PHYSICIAN(S) WHO WILL BE CONSULTING ON THE PLAN ANGUS KWON [code = THE CERTIFYING PHYSICIAN, ASSOCIATED PHYSICIAN, NPP OR PA WITHIN THE SAME GROUP MAY APPROVE AND SIGN THE ORDER (ON ANY PAGE) ATTESTING THAT THE COMPREHENSIVE OUTCOME ASSESSMENTS, EVALUATIONS, AND HOME HEALTH CERTIFICATION PLANS SUPPORT HOMEBOUND STATUS. HOME HEALTH WEB PORTAL DOCUMENTATION ACCESSED BY THE PHYSICIAN MUST BE INCORPORATED INTO THE MEDICAL RECORD TO CORROBORATE THE PHYSICIAN, NPP, OR PA'S F2F ENCOUNTER TO SUPPORT ELIGIBILITY FOR HOME HEALTH SERVICES. MAY ACCEPT ORDERS FROM THE FOLLOWING PHYSICIAN(S) WHO WILL BE CONSULTING ON THE PLAN ANGUS KWON] Future Scheduled Test FOR EACH O RDERED, IN-HOME OR TELEHEALTH VISIT, THE PHYSICAL THERAPIST WILL EVALUATE AND TREAT PATIENT S FUNCTIONAL DEFICITS. PHYSICAL THERAPIST WILL ASSESS AND INSTRUCT ON PAIN, FALL PREVENTION AND SAFETY, MENTAL/COGNITIVE/PSYCHOSOCIAL STATUS, MED MANAGEMENT, SKIN INTEGRITY, PRESSURE ULCER PREVENTION, AND INFECTION CONTROL/PREVENTION RELATED TO THE PRIMARY MEDICAL DIAGNOSIS AND ACTIVE CO-MORBIDITIES THAT MAY IMPACT THE PATIENT S OUTCOME. [code = FOR EACH ORDERED, IN-HOME OR TELEHEALTH VISIT, THE PHYSICAL THERAPIST WILL EVALUATE AND TREAT PATIENT S FUNCTIONAL DEFICITS. PHYSICAL THERAPIST WILL ASSESS AND INSTRUCT ON PAIN, FALL PREVENTION AND SAFETY, MENTAL/COGNITIVE/PSYCHOSOCIAL STATUS, MED MANAGEMENT, SKIN INTEGRITY, PRESSURE ULCER PREVENTION, AND INFECTION CONTROL/PREVENTION RELATED TO THE PRIMARY MEDICAL DIAGNOSIS AND ACTIVE CO-MORBIDITIES THAT MAY IMPACT THE PATIENT S OUTCOME.] Goal Patient Goal - P ATIENT WANTS TO GET STRONGER, WALK BETTER AND BE ABLE TO GET RID OF HER WALKER Goal Provider Goal - PATIENT/CAREGIVER WILL DEMONSTRATE APPROPRIATE INCISIONAL CARE. INCISION / SUTURE LINE IMPROVE EVIDENCED BY DECREASE IN SIZE / DRAINAGE OF WOUND, NO SIGNS AND SYMPTOMS OF INFECTION, DECREASED PAIN, HEALING IS PROGRESSING BY 03/29/25. Goal Provider Goal - PATIENT WILL RECEIVE HOME HEALTH SERVICES ON ORDERED START DATE. Goal Provider Goal - PATIENT/CAREGIVER WILL RETURN DEMONSTRATE ACCURATE AND SAFE EXECUTION OF ESTABLISHED HOME EXERCISE PROGRAM TO IMPROVE ABILITY TO AMBULATE. Goal Provider Goal - PATIENT WILL DEMONSTRATE IMPROVED SAFETY AND ABILITY WITH TRANSFERS AND BED MOBILITY. Goal Provider Goal - PATIENT WILL DEMONSTRATE IMPROVED SAFETY AND ABILITY WITH GAIT, BALANCE, AND REDUCED FALL RISK. Goal Provider Goal - PATIENT/CAREGIVER VERBALIZES UNDERSTANDING AND DEMONSTRATES COMPLIANCE WITH PRECAUTIONS, ACTIVITIES PERMITTED OR RESTRICTED, SELF-MANAGEMENT STRATEGIES, AND WARNING SIGNS TO REPORT POST-TYPE BY DATE. Goal Provider Goal - ADDITIONAL ORDERS WILL BE RECEIVED FROM ALTERNATE PHYSICIANS IN A TIMELY MANNER. Goal Provider Goal - PHYSICAL THERAPY EVALUATION WILL BE COMPLETED, AND A PLAN OF CARE WILL BE DEVELOPED FOR THE TREATMENT OF PATIENT DEFICITS RELATED TO PRIMARY DIAGNOSIS FOR HOME CARE EPISODE. PATIENT/CAREGIVER TO VERBALIZE AND DEMONSTRATE UNDERSTANDING OF ASSOCIATED DISEASE PROCESSES AND THEIR INFLUENCE ON FUNCTION IN THE HOME ENVIRONMENT AND MINIMIZE RISK OF HOSPITALIZATION. Encounters Start Date/Time End Date/Time Encounter Type Admission Type Attending [facility] Care Department Encounter ID Discharge Date Discharge Status Discharge Condition Discharge Reason Percent Goals Met 2025-01-29 00:00:00 2025-03-29 00:00:00 Outpatient NEW ADMISSION GOVIND FAUSTINA [facility] [id number]
== END 2025-01-30 21:42 | disposition home or self-care (01) ==
PROVIDERS: Emergency Medicine; Emergency Provider Registered Nurse; PCP Internal Medicine Geriatric Medicine
DX: J44.1 Chronic obstructive pulmonary disease with (acute) exacerbation (principal); R60.0 Localized edema; Z98.1 Arthrodesis status; I10 Essential (primary) hypertension; Z20.822 Contact with and (suspected) exposure to COVID-19
CPT/HCPCS: 36415; 71046; 71275; 80053; 83690; 83880; 84484; 85025; 85380; 85610; 85730; 87637; 93005; 99284; A9270; Q9967